=== PATIENT | female | born 1965 | race Caucasian/White ===

== ENCOUNTER 2020-03-16 07:26 | Outpatient (REF) | payer OTHER, SELFPAY ==
[2020-03-16 08:44] LABS: Cholesterol 277 mg/dL; HDL Cholesterol 77 mg/dL; LDL Cholesterol Calculated 188 mg/dl; Triglycerides 60 mg/dL
[2020-03-16 09:06] LABS: Vitamin D 25-OH Total 65.5 ng/mL (>30)
== END 2020-03-16 07:27 | disposition home or self-care (01) ==
LOC: HO.LAB 07:26
PROVIDERS: PCP Internal Medicine; Visit Provider Internal Medicine
DX: E55.9 Vitamin D deficiency, unspecified (principal); E78.5 Hyperlipidemia, unspecified; Z78.0 Asymptomatic menopausal state
CPT/HCPCS: 80061; 82306

== ENCOUNTER 2020-07-22 07:40 | Outpatient (REF) | payer OTHER, SELFPAY ==
[2020-07-22 09:01] LABS: Alanine Aminotransferase 13 U/L (0-31); Aspartate Amino Transferase 13 U/L (5-31); Cholesterol 195 mg/dL; HDL Cholesterol 69 mg/dL; LDL Cholesterol Calculated 119 mg/dl; Triglycerides 39 mg/dL
[2020-07-22 09:22] LABS: Vitamin D 25-OH Total 40.5 ng/mL (>30)
== END 2020-07-22 07:41 | disposition home or self-care (01) ==
LOC: HO.LAB 07:40
PROVIDERS: PCP Internal Medicine; Visit Provider Internal Medicine
DX: E66.9 Obesity, unspecified (principal); E78.5 Hyperlipidemia, unspecified; Z78.0 Asymptomatic menopausal state
CPT/HCPCS: 36415; 80061; 82306; 84450; 84460

== ENCOUNTER 2021-01-04 07:21 | Outpatient (REF) | payer OTHER, SELFPAY ==
[2021-01-04 08:54] LABS: Alanine Aminotransferase 16 U/L (0-31); Anion Gap 10 (12-20); Aspartate Amino Transferase 14 U/L (5-31); Blood Urea Nitrogen 17 mg/dL (9-16); Calcium 9.2 mg/dL (8.4-10.2); Carbon Dioxide 28 mmol/L (22-29); Chloride 107 mmol/L (96-108); Cholesterol 210 mg/dL; Estimated Glomerular Filt Rate > 60; Glucose Fasting 96 mg/dL (60-99); HDL Cholesterol 63 mg/dL; LDL Cholesterol Calculated 135 mg/dl; Potassium 4.1 mmol/L (3.3-5.1); Sodium 141 mmol/L (135-145); Triglycerides 64 mg/dL
[2021-01-04 09:16] LABS: Vitamin D 25-OH Total 34.7 ng/mL (>30)
== END 2021-01-04 07:22 | disposition home or self-care (01) ==
LOC: HO.LAB 07:21
PROVIDERS: PCP Internal Medicine; Visit Provider Internal Medicine
DX: E78.5 Hyperlipidemia, unspecified (principal); I10 Essential (primary) hypertension; Z78.0 Asymptomatic menopausal state
CPT/HCPCS: 36415; 80048; 80061; 82306; 84450; 84460

== ENCOUNTER 2022-02-25 08:42 | Outpatient (REF) | payer OTHER, SELFPAY ==
[2022-02-25 09:55] LABS: Alanine Aminotransferase 16 U/L (0-31); Anion Gap 16 (12-20); Aspartate Amino Transferase 16 U/L (5-31); Blood Urea Nitrogen 17 mg/dL (9-16); Calcium 9.4 mg/dL (8.4-10.2); Carbon Dioxide 25 mmol/L (22-29); Chloride 107 mmol/L (96-108); Cholesterol 279 mg/dL; Estimated Glomerular Filt Rate > 60; Glucose Fasting 104 mg/dL (60-99); HDL Cholesterol 71 mg/dL; LDL Cholesterol Calculated 192 mg/dl; Potassium 4.6 mmol/L (3.3-5.1); Sodium 143 mmol/L (135-145); Triglycerides 81 mg/dL
[2022-02-25 10:18] LABS: Vitamin D 25-OH Total 29.2 ng/mL (>30)
== END 2022-02-25 08:43 | disposition home or self-care (01) ==
LOC: HO.LAB 08:42
PROVIDERS: PCP Internal Medicine; Visit Provider Internal Medicine
DX: E66.9 Obesity, unspecified (principal); E78.5 Hyperlipidemia, unspecified; Z78.0 Asymptomatic menopausal state
CPT/HCPCS: 36415; 80048; 80061; 82306; 84450; 84460

== ENCOUNTER 2022-05-28 08:49 | Outpatient (REF) | payer OTHER, SELFPAY ==
[2022-05-28 09:34] LABS: Estimated Average Glucose 105 mg/dL; Hemoglobin A1c % 5.3 %
[2022-05-28 10:03] LABS: Anion Gap 12 (12-20); Aspartate Amino Transferase 16 U/L (5-31); Blood Urea Nitrogen 21 mg/dL (9-16); Calcium 9.6 mg/dL (8.4-10.2); Carbon Dioxide 26 mmol/L (22-29); Chloride 107 mmol/L (96-108); Cholesterol 199 mg/dL; Estimated Glomerular Filt Rate > 60; Glucose Fasting 96 mg/dL (60-99); HDL Cholesterol 77 mg/dL; LDL Cholesterol Calculated 110 mg/dl; Potassium 4.4 mmol/L (3.3-5.1); Sodium 141 mmol/L (135-145); Triglycerides 61 mg/dL
[2022-05-28 10:26] LABS: Vitamin D 25-OH Total 50.9 ng/mL (>30)
== END 2022-05-28 08:50 | disposition home or self-care (01) ==
LOC: HO.LAB 08:49
PROVIDERS: PCP Internal Medicine; Visit Provider Internal Medicine
DX: E55.9 Vitamin D deficiency, unspecified (principal); E78.5 Hyperlipidemia, unspecified; R73.01 Impaired fasting glucose; Z78.0 Asymptomatic menopausal state
CPT/HCPCS: 36415; 80048; 80061; 82306; 82550; 83036; 84450

== ENCOUNTER 2023-01-29 08:32 | Outpatient (REF) | payer OTHER, SELFPAY ==
[2023-01-29 09:59] LABS: Glucose Fasting 94 mg/dL (60-99)
== END 2023-01-29 08:33 | disposition home or self-care (01) ==
LOC: HO.LAB 08:32
PROVIDERS: PCP Internal Medicine; Visit Provider Internal Medicine
DX: E55.9 Vitamin D deficiency, unspecified (principal); R73.01 Impaired fasting glucose; E78.5 Hyperlipidemia, unspecified; Z78.0 Asymptomatic menopausal state
CPT/HCPCS: 36415; 82947

== ENCOUNTER 2023-02-10 07:20 | Outpatient (REF) | payer OTHER, SELFPAY ==
[2023-02-10 08:33] LABS: Alanine Aminotransferase 15 U/L (0-31); Aspartate Amino Transferase 16 U/L (5-31); Cholesterol 200 mg/dL (<200); HDL Cholesterol 69 mg/dL (>40); LDL Cholesterol Calculated 116 mg/dL (<100); Triglycerides 78 mg/dL (<150)
[2023-02-10 08:49] LABS: Vitamin D 25-OH Total 38.3 ng/mL (>30)
== END 2023-02-10 07:21 | disposition home or self-care (01) ==
LOC: HO.LAB 07:20
PROVIDERS: PCP Internal Medicine; Visit Provider Internal Medicine
DX: E78.5 Hyperlipidemia, unspecified (principal); E55.9 Vitamin D deficiency, unspecified; Z78.0 Asymptomatic menopausal state; E66.9 Obesity, unspecified
CPT/HCPCS: 36415; 80061; 82306; 84450; 84460

== ENCOUNTER 2023-02-13 13:40 | Outpatient (AMB) | payer OTHER, SELFPAY ==
--- NOTE | 2023-02-13 13:41 | A.OFFPC_ITS ---
Vital Signs 02/13/23 13:44 Height 5 ft 2 in Weight 227 lb BMI 41.5 BP 130/76 Blood Pressure Location Rt brachial Position Sitting Pulse 69 Pulse Source Pulse Oximeter Pulse Oximetry (%) 97 Oxygen Delivery Method Room Air Intake Visit Reasons: 6M. F/U-ffup lipids after labs done Intake Note: patient is here today for her 6 moth f/u Allergies latex [LATEX] Allergy (Intermediate, Verified 02/13/23 14:13) RASH Medication List - Last Reconciled 02/13/23 by Gracie Bruce MD cholecalciferol (vitamin D3) 1,250 mcg PO QWEEK 90 days rosuvastatin 5 mg PO DAILY Tobacco use date assessed: 02/13/23 Dental Screening Dental Screen Date: 02/13/23 Did you have a dental visit in the last 12 months?: Yes Did you have a dental problem in the last 6 months where you did not have access to dental care?: No Was dental information given to patient?: Patient has dentist HPI 6M. F/U-ffup lipids after labs done HPI Details 57-year-old lady with hyperlipidemia, mo rbid obesity, history of impaired fasting glucose and vitamin-D deficiency, here today for follow-up. She has been taking rosuvastatin 5 mg once a day, tolerating medication well with no complaints of any muscle pain or weakness. Has been trying to follow a low-cholesterol diet but admits to not getting much exercise. She also has been having intermittent episodes of chest tightness, not accompanied by any shortness of breath or lightheadedness. Her blood pressure has been within normal limits. Patient attributes it to a stressful work environment, as she has these symptoms when she is at work. An EKG was done today which showed normal sinus rhythm with no acute ST-T changes. [facility] Medical History Hammertoe of second toe of right foot Impaired fasting glucose Vitamin D deficiency Family history of breast cancer in sister Menopause Influenza vaccination declined Dermatitis Dysfunctional uterine bleeding Obesity Dyslipidemia Surgical History History of hammertoe correction History of colonoscopy History of bunionectomy Family History Father Myocardial infarction HTN (hypertension) CVD (cardiovascular disease) Mother CKD (chronic kidney disease) CVD (cardiovascular disease) Diabetes mellitus Maternal Grandfather Diabetes mellitus Sister Mental health disorder Sister Mental health disorder Social History Housing: House Alcohol intake: never Patient Tobacco Use Status: Never used Tobacco e-Cigarette/Vaping Use: Never Used Current occupational status: employed Cognitive needs: No Hearing needs: No Vision needs: Yes Questionnaire PHQ-9 Over the last 2 weeks, how often have you been bothered by any of the following problems? Depression Screening Interpretation: Negative Source: Developed by Drs. Esau Gonzalez, Matilde Mulligan, Adarsh Felix and colleagues, with an educational ciro from [employer]. Thrive Questionnaire Date Thrive assessed: 06/03/22 AUDIT C Alcohol Use Questionnaire (AUDIT-C) 1. How often do you have a drink containing alcohol?: Monthly or less 2. How many drinks containing alcohol do you have on a typical day when you are drinking?: 1 or 2 Total Score: 1 CHARLES-7 AMB Questionnaire CHARLES-7 Date CHARLES - 7 assessed: 06/03/22 Source: Developed by Drs. Esau Gonzalez, Matilde Mulligan, Adarsh Felix and colleagues, with an educational ciro from [employer]. Review of Systems Const Denies headache(s) and Denies weakness Eyes Reports no additional complaints ENT Denies dizziness, Denies headache(s), Denies nasal congestion, Denies nasal discharge and Denies sore throat Card Denies chest pain, Denies lightheadedness, Denies palpitations and Denies dyspnea Resp Denies chest congestion, Denies cough, Denies dyspnea and Denies wheezing GI Denies abdominal pain, Denies change in bowel habits and Denies heartburn Reports no additional complaints Musc Reports no additional complaints Skin/Breast Denies lesions and Denies rash Neuro Denies dizziness, Denies headache(s) and Denies weakness Psych Reports no additional complaints Endo Denies polydipsia, Denies polyuria and Denies palpitations Aller/Immun Denies seasonal rhinorrhea and Denies wheezing Physical exam (Primary Care) Vital Signs: Last Vital Signs Pulse 69 02/13/23 13:44 BP 130/76 02/13/23 13:44 Pulse Ox 97 09/28/23 13:44 Oxygen Delivery Method Room Air 02/13/23 13:44 BMI result Body Mass Index 41.5 BMI Assessment/Plan discussion: High BMI High, discussed plan: lifestyle, weight reduction, dietary and physical activity Tobacco/Smoking Status: Tobacco use Status Tobacco use date assessed 02/13/23 02/13/23 13:50 Patient Tobacco Use Status Never used Tobacco 02/13/23 13:41 e-Cigarette/Vaping Use Never Used 02/13/23 13:41 Depression Screening Interpretation: Negative Thrive Assessment: Date of Thrive Assessment Date Thrive assessed 06/03/22 02/13/23 13:41 Const General: comfortable, no acute distress, alert and Physically active Nutritional Appearance: obese Orientation/consciousness: patient oriented x3 HENMT Head: Yes normocephalic Ears: TM's normal bilaterally and EAC's normal General nose exam: Normal external nose present and No nasal discharge present Face and sinus: Yes face symmetric Mouth: oropharynx normal and moist mucous membranes Eyes General: appearance normal, both eyes and all related structures Neck Neck: Yes full ROM, Yes no lymphadenopathy and Yes supple Chest Other: No reproducible tenderness over anterior chest wall Chest palpation & inspection: normal inspection of the chest and normal palpation of entire chest wall Breast/axilla inspection: normal inspection of the breasts Breast/axilla palpation: normal palpation of the breasts Resp Auscultation: clear to auscultation bilaterally Cardio Rate: regular rate Rhythm: regular rhythm Heart sounds: S1 normal heart sound present and S2 normal heart sound present GI Palpation (GI): Soft to palpation, nontender, no guarding and no masses Auscultation: normal bowel sounds Back/Spine/Pelvis Back: No back tenderness Skin General skin exam: no rashes or lesions noted Neuro General: patient oriented x3, gait normal, tone normal, moves all extremities, no focal motor deficits and CN's II-XI intact bilaterally Extrem Other: Positive hammertoes present on right 2nd toe General: Yes full ROM, Yes no clubbing, cyanosis or edema, Yes no calf tenderness and Yes normal gait Psych Appearance: grossly normal and well kempt Mental Status: mental status grossly normal Speech and movement: Normal speech and movement present Affect: normal affect Attitude: cooperative Thought process: Normal thought process present Results Reviewed Results Reviewed: ENTERED: 02/10/23 [facility] : ORDERED: AST, ALT, Lipid Panel, Vitamin D 25-OH Test Result Flag Reference Site AST (GOT) 16 5-31 U/L ALT (GPT) 15 0-31 U/L Triglyceride 78 <150 mg/dL Desirable Triglyceride: less than 150 mg/dL Borderline High Triglyceride 150-199 mg/dL High Triglyceride: 200-499 mg/dL Very High Triglyceride: greater than or equal to 5OO mg/dL Cholesterol 200 H <200 mg/dL Desirable Cholesterol: less than 200 mg/dL Borderline High Cholesterol: 200-239 mg/dL High Cholesterol: greater than 239 mg/dL LDL Calculated 116 H <100 mg/dL Desirable LDL: less than 100 mg/dL Near Optimal/Above Optimal LDL: 110-129 mg/dL Borderline High LDL: 130-159 mg/dL High LDL: 160-189 mg/dL Very High LDL: greater than or equal to 190 mg/dL HDL 69 >40 mg/dL Desirable HDL: greater than 40 mg/dL Note: This HDL assay may give artificially low results in patients with liver disease. Vit D 25-OH Tot 38.3 >30 ng/mL Health Based Reference Values* < 20 ng/mL Deficient 20-30 ng/mL Insufficient > 30 ng/mL Sufficient Assessment and Plan Assessment & Plan (1) Tightness in chest: Code(s): R07.89 - Other chest pain Plan: EKG done today showed normal sinus rhythm with no acute ST-T changes, blood pressure is within normal limits, fasting lipids and fasting glucose are also within normal limits, is most likely attributed to possible acute anxiety attacks..Discussed symptoms of anxiety. Discussed ways to relieve stress including : exercise or a massage, Get enough rest, Avoid alcohol, caffeine, nicotine, and illegal drugs which can increase your anxiety level and cause sleep problems. (2) Impaired fasting glucose: Code(s): R73.01 - Impaired fasting glucose Plan: Your fasting blood sugars in the past were elevated above 100 mg/dL. Latest labs however showed normal fasting glucose levels. Impaired glucose metabolism O2 at risk for developing diabetes mellitus type 2, as well as heart attack and stroke later on. Lifestyle changes at just weight loss, healthy eating habits, and regular exercise are important, and can prevent the progression to diabetes (3) Dyslipidemia: Code(s): E78.5 - Hyperlipidemia, unspecified Plan: Reviewed recent fasting lipid profile with patient with levels within normal limits except for low good cholesterol . Continue with rosuvastatin , in addition to adherence to low-cholesterol diet and regular exercise, at least 30 minutes 3 to 4 times a week. Advised patient to make healthy food choices, eat more fruits, vegetables, whole grains, wild caught fish and low-fat dairy. Limit amount of meat and fried or fatty food products, as well as processed foods and fast foods. Follow-up scheduled with repeat fasting lipid panel in 6 months. Orders: Orders AMB EKG-In Office Today R07.89 - Other chest pain Alanine Aminotransferase 6 Months E55.9 - Vitamin D deficiency, unspecified, E78.5 - Hyperlipidemia, unspecified, R73.01 - Impaired fasting glucose, Z78.0 - Asymptomatic menopausal state Aspartate Amino Transferase 6 Months E55.9 - Vitamin D deficiency, unspecified, E78.5 - Hyperlipidemia, unspecified, R73.01 - Impaired fasting glucose, Z78.0 - Asymptomatic menopausal state Vitamin D 25-OH Total 6 Months E55.9 - Vitamin D deficiency, unspecified, E78.5 - Hyperlipidemia, unspecified, R73.01 - Impaired fasting glucose, Z78.0 - Asymptomatic menopausal state Glucose Fasting 6 Months E55.9 - Vitamin D deficiency, unspecified, E78.5 - Hyperlipidemia, unspecified, R73.01 - Impaired fasting glucose, Z78.0 - Asymptomatic menopausal state Lipid Panel 6 Months E55.9 - Vitamin D deficiency, unspecified, E78.5 - Hyperlipidemia, unspecified, R73.01 - Impaired fasting glucose, Z78.0 - Asymptomatic menopausal state Medications: Refilled rosuvastatin 5 mg PO DAILY 90 tabs 4RF E78.5 - Hyperlipidemia, unspecified Coding Level of Care Code Est Pt Level 4 (02272) Diagnoses Tightness in chest R07.89 Impaired fasting glucose R73.01 Dyslipidemia E78.5
[2023-02-13 13:44] VITALS: BP 130/76; PULSE 69; O2SAT 97; BMI 41.5
== END 2023-02-13 14:44 | disposition home or self-care (01) ==
PROVIDERS: PCP Internal Medicine; Visit Provider Internal Medicine
DX: R07.89 Other chest pain (principal); R73.01 Impaired fasting glucose; E78.5 Hyperlipidemia, unspecified
CPT/HCPCS: 99214

== ENCOUNTER 2023-10-21 08:13 | Outpatient (REF) | payer OTHER, SELFPAY ==
[2023-10-21 09:40] LABS: Alanine Aminotransferase 15 U/L (0-31); Aspartate Amino Transferase 16 U/L (5-31); Cholesterol 242 mg/dL (<200); Glucose Fasting 106 mg/dL (60-99); HDL Cholesterol 66 mg/dL (>40); LDL Cholesterol Calculated 163 mg/dL (<100); Triglycerides 68 mg/dL (<150)
[2023-10-21 09:57] LABS: Vitamin D 25-OH Total 29.1 ng/mL (>30)
== END 2023-10-21 08:14 | disposition home or self-care (01) ==
LOC: HO.LAB 08:13
PROVIDERS: PCP Internal Medicine; Visit Provider Internal Medicine
DX: E55.9 Vitamin D deficiency, unspecified (principal); R73.01 Impaired fasting glucose; Z78.0 Asymptomatic menopausal state; E78.5 Hyperlipidemia, unspecified
CPT/HCPCS: 36415; 80061; 82306; 82947; 84450; 84460

== ENCOUNTER 2023-10-28 09:08 | Outpatient (AMB) | payer OTHER, SELFPAY ==
--- NOTE | 2023-10-28 09:27 | A.OFFPC_ITS ---
Vital Signs 10/28/23 09:30 Height 5 ft 2 in Weight 234 lb BMI 42.8 BP 120/66 Blood Pressure Location Rt brachial Position Sitting Pulse 65 Pulse Source Pulse Oximeter Pulse Oximetry (%) 97 Oxygen Delivery Method Room Air Intake Visit Reasons: Annual PE Intake Note: Pt is here today for PE. Pt had mammogram done 09/29/23, colonoscopy done in 04/17/2017 repeat in 7 years. Pt last pap was done at [facility] in 06/2023. Allergies latex [LATEX] Allergy (Intermediate, Verified 02/17/24 22:48) RASH Medication List - Last Reconciled 10/28/23 by Gracie Bruce MD No Known Home Meds Tobacco use date assessed: 10/28/23 Dental Screening Dental Screen Date: 10/28/23 Did you have a dental visit in the last 12 months?: Yes Did you have a dental problem in the last 6 months where you did not have access to dental care?: No Was dental information given to patient?: Patient has dentist HPI Annual PE HPI Details 58-year-old lady here today for physical exam. She sees her OBGYN at [facility], up-to-date with her cervical cancer screening, she is also up-to-date with her screening mammogram . She had a screening colonoscopy done by Dr. Phillips 04/17/2017 which showed negative findings, but due to her of positive family history for ovarian cancer and breast cancer, recommendations to get it repeated in 7 years. [facility] Medical History CHEK2 gene mutation positive Hammertoe of second toe of right foot Impaired fasting glucose Vitamin D deficiency Family history of breast cancer in sister Menopause Influenza vaccination declined Dermatitis Dysfunctional uterine bleeding Obesity Dyslipidemia Surgical History History of hammertoe correction History of colonoscopy History of bunionectomy Family History Father Myocardial infarction HTN (hypertension) CVD (cardiovascular disease) Mother CKD (chronic kidney disease) CVD (cardiovascular disease) Diabetes mellitus Maternal Grandfather Diabetes mellitus Sister Mental health disorder Sister Mental health disorder Social History Housing: House Alcohol intake: never Patient Tobacco Use Status: Never used Tobacco e-Cigarette/Vaping Use: Never Used service: No Current occupational status: employed Cognitive needs: No Hearing needs: No Vision needs: Yes Questionnaire PHQ-9 Over the last 2 weeks, how often have you been bothered by any of the following problems? 1. Little interest or pleasure in doing things: not at all 2. Feeling down, depressed, or hopeless: not at all 3. Trouble falling or staying asleep, or sleeping too much: not at all 4. Feeling tired or having little energy: more than half the days 5. Poor appetite or overeating: more than half the days 6. Feeling bad about yourself - or that you are a failure or have let yourself or your family down: several days 7. Trouble concentrating on things, such as reading the newspaper or watching television: not at all 8. Moving or speaking so slowly that other people could have noticed. Or the opposite - being so fidgety or restless that you have been moving around a lot more than usual: more than half the days 9. Thoughts that you would be better off or of hurting yourself in some way: not at all Total score: 7 Depression Screening Interpretation: Negative Depression Screening Done: Yes 01174 - PHQ-9 Billing: Yes Source: Developed by Drs. Esau Gonzalez, Matilde Mulligan, Adarsh Felix and colleagues, with an educational ciro from [employer]. Thrive Questionnaire Date Thrive assessed: 10/28/23 I am a: Patient What is your living situation today?: I have a steady place to live Within the past 12 months, did the food you bought not last and you didn't have the money to get more?: Never true Within the past 12 months, did you worry whether your food would run out before you got money to buy more?: Never true Do you have trouble paying for medicines?: No Do you have trouble getting transportation to medical appointments?: No Do you have trouble paying your heating and electricity bill?: No Do you have trouble taking care of your child, family member or friend?: No Do you have trouble with day-to-day activities such as bathing, preparing meals, shopping, managing finances, etc.?: No Are you currently unemployed and looking for a job?: No Are you interested in more education?: No Please select the resources that you would like help with: None THRIVE Score: 0 AUDIT C Alcohol Use Questionnaire (AUDIT-C) 1. How often do you have a drink containing alcohol?: Monthly or less 2. How many drinks containing alcohol do you have on a typical day when you are drinking?: 1 or 2 3. How often do you have six or more drinks on one occasion?: Never Total Score: 1 CHARLES-7 AMB Questionnaire CHARLES-7 Date CHARLES - 7 assessed: 10/28/23 Feeling nervous, anxious, or on edge: 1 = Several days Not being able to stop or control worryin = Not at all Worrying too much about different things: 1 = Several days Trouble relaxin = Several days Being so restless that it is hard to sit still: 0 = Not at all Becoming easily annoyed or irritable: 1 = Several days Feeling afraid as if something awful might happen: 0 = Not at all Total CHARLES-7 score (0-4 normal; 5-9 mild; 10-14 moderate; 15-21 severe): 4 Source: Developed by Drs. Esau Gonzalez, Matilde Mulligan, Adarsh Felix and colleagues, with an educational ciro from [employer]. CHARLES-7 Assessment Billing CHARLES-7 Assessment Tool: CHARLES-7 Assessment 22530 Review of Systems Const Denies headache(s) and Denies weakness Eyes Details: Goes to [facility] for her eye exam Reports no additional complaints ENT Details: Gets regular dental prophylaxis every 6 months Denies dizziness, Denies headache(s), Denies nasal congestion, Denies nasal discharge and Denies sore throat Card Denies chest pain, Denies lightheadedness, Denies palpitations and Denies dyspnea Resp Denies chest congestion, Denies cough, Denies dyspnea and Denies wheezing GI Denies abdominal pain, Denies change in bowel habits and Denies heartburn Details: Goes to [facility] . For her routine Pap and pelvic, copy of last results requested Reports no additional complaints Musc Reports no additional complaints Skin/Breast Denies lesions and Denies rash Neuro Denies dizziness, Denies headache(s) and Denies weakness Psych Reports no additional complaints Endo Denies polydipsia, Denies polyuria and Denies palpitations Tommy/Lymph Reports no additional complaints Aller/Immun Denies seasonal rhinorrhea and Denies wheezing Physical exam (Primary Care) Vital Signs: Last Vital Signs Pulse 65 10/28/23 09:30 BP 120/66 10/28/23 09:30 Pulse Ox 97 10/28/23 09:30 Oxygen Delivery Method Room Air 10/28/23 09:30 BMI result Body Mass Index 42.8 BMI Assessment/Plan discussion: High BMI High, discussed plan: lifestyle, weight reduction, dietary and physical activity Tobacco/Smoking Status: Tobacco use Status Tobacco use date assessed 10/28/23 10/28/23 09:52 Patient Tobacco Use Status Never used Tobacco 10/28/23 09:27 e-Cigarette/Vaping Use Never Used 10/28/23 09:27 PHQ-9: PHQ-9 Score PHQ-9: Total score 9 10/28/23 10:48 Depression Screening Interpretation: Negative Thrive Assessment: Date of Thrive Assessment Date Thrive assessed 10/28/23 10/28/23 09:52 Const General: comfortable, no acute distress and alert Nutritional Appearance: obese Orientation/consciousness: patient oriented x3 HENMT Head: Yes normocephalic Ears: TM's normal bilaterally and EAC's normal General nose exam: Normal external nose present and No nasal discharge present Face and sinus: Yes face symmetric Mouth: oropharynx normal and moist mucous membranes Eyes General: appearance normal, both eyes and all related structures Neck Neck: Yes full ROM, Yes no lymphadenopathy and Yes supple Chest Other: No reproducible tenderness over anterior chest wall Chest palpation & inspection: normal inspection of the chest and normal palpation of entire chest wall Breast/axilla inspection: normal inspection of the breasts Breast/axilla palpation: normal palpation of the breasts Resp Auscultation: clear to auscultation bilaterally Cardio Rate: regular rate Rhythm: regular rhythm Heart sounds: S1 normal heart sound present and S2 normal heart sound present GI Palpation (GI): Soft to palpation, nontender, no guarding and no masses Auscultation: normal bowel sounds Other: Goes to her own OBGYN at [facility] for her routine Pap and pelvic exam Back/Spine/Pelvis Back: No back tenderness Skin General skin exam: no rashes or lesions noted Neuro General: patient oriented x3, gait normal, tone normal, moves all extremities, no focal motor deficits and CN's II-XI intact bilaterally Extrem Other: Positive hammertoes present on right 2nd toe General: Yes full ROM, Yes no clubbing, cyanosis or edema, Yes no calf tenderness and Yes normal gait Psych Appearance: grossly normal and well kempt Mental Status: mental status grossly normal Speech and movement: Normal speech and movement present Affect: normal affect Attitude: cooperative Thought process: Normal thought process present Results Reviewed Results Reviewed: ivan: Zeina Villegas Age/Sex: 58/F : 1965 Unit#: [id number] Attend Dr: Gracie Bruce MD Re10/21/23 Status: DEP [facility] Disch: SPEC : [id number] TRAE: 10/21/23 STATUS: COMP REQ : [id number] RECD: 10/21/[address]: Gracie Bruce MD COMP: 10/21/23 ENTERED: 10/21/[address]: ORDERED: Glu Fasting, AST, ALT, Lipid Panel, Vitamin D 25-OH Test Result Flag Reference FBS 106 H 60-99 mg/dL A fasting glucose from 100-125 mg/dl is considered impaired (pre-diabetes). AST (GOT) 16 5-31 U/L ALT (GPT) 15 0-31 U/L Triglyceride 68 <150 mg/dL Desirable Triglyceride: less than 150 mg/dL Borderline High Triglyceride 150-199 mg/dL High Triglyceride: 200-499 mg/dL Very High Triglyceride: greater than or equal to 5OO mg/dL Cholesterol 242 H <200 mg/dL Desirable Cholesterol: less than 200 mg/dL Borderline High Cholesterol: 200-239 mg/dL High Cholesterol: greater than 239 mg/dL LDL Calculated 163 H <100 mg/dL Desirable LDL: less than 100 mg/dL Near Optimal/Above Optimal LDL: 110-129 mg/dL Borderline High LDL: 130-159 mg/dL High LDL: 160-189 mg/dL Very High LDL: greater than or equal to 190 mg/dL HDL 66 >40 mg/dL Desirable HDL: greater than 40 mg/dL Note: This HDL assay may give artificially low results in patients with liver disease. Vit D 25-OH Tot 29.1 L >30 ng/mL Health Based Reference Values* < 20 ng/mL Deficient 20-30 ng/mL Insufficient > 30 ng/mL Sufficient Coding Level of Care Code Est Pt Prev Care 40-64y(07178) Diagnoses Vitamin D deficiency E55.9 Dyslipidemia E78.5 Impaired fasting glucose R73.01 Annual visit for general adult medical examination with abnormal findings Z00.01 CHEK2 gene mutation positive Z15.89 Encounter for screening for malignant neoplasm of colon Z12.11 Additional Codes CHARLES-7 Assessment Billing - CHARLES-7 Assessment Tool: CHARLES-7 Assessment 64689 ([id number])
[2023-10-28 09:30] VITALS: BP 120/66; PULSE 65; O2SAT 97; BMI 42.8
== END 2023-10-28 11:26 | disposition home or self-care (01) ==
PROVIDERS: PCP Internal Medicine; Visit Provider Internal Medicine
DX: E55.9 Vitamin D deficiency, unspecified (principal); E78.5 Hyperlipidemia, unspecified; R73.01 Impaired fasting glucose; Z00.01 Encounter for general adult medical examination with abnormal findings; Z15.89 Genetic susceptibility to other disease; Z12.11 Encounter for screening for malignant neoplasm of colon
CPT/HCPCS: 99499

== ENCOUNTER 2024-01-07 07:50 | Outpatient (AMB) | payer OTHER, SELFPAY ==
--- NOTE | 2024-01-07 08:02 | MHC.OFFVIS ---
Vital Signs 01/07/24 08:03 Height 5 ft 2 in Weight 234 lb 2.095 oz BMI 42.8 BP 146/88 H Blood Pressure Location Rt brachial Position Sitting Pulse 66 Pulse Source Pulse Oximeter Pulse Oximetry (%) 97 Oxygen Delivery Method Room Air Intake Visit Reasons: Colonoscopy Screening Intake Note: Zeina presents in office today for a scheduled colo consult. CC; Pt reports that they are due for recall colo (approximately 10 years ago). Pt reports that they recently had genetic testing which showed signs of increased risk of colo cancer. Pt denies any new symptoms at this time. Equipment Service Technician Required: No Allergies latex [LATEX] Allergy (Intermediate, Verified 01/07/24 08:03) RASH HPI HPI Colonoscopy Screening: Details: 58 year old? female here today for pre colonoscopy screening.? Patient was sent to us by her PCP.? Family history of CRC, patient's maternal grandfather was diagnosed with colorectal cancer. Last colonoscopy in March of 2017. Patient just had a genetic testing and was found to have CHEK2 mutation. Patient denies any gastrointestinal symptoms in the past or at present.? ? Denies history of difficulty with sedation or anesthesia in the past.? Negative for history of sleep apnea.? Denies any history of cardiac, renal, pulmonary, or hepatic disease.?? No history of infectious? diseases like hepatitis A, B, C, HIV or tuberculosis.? Patient is not on any anticoagulation [facility] Medical History CHEK2 gene mutation positive Hammertoe of second toe of right foot Impaired fasting glucose Vitamin D deficiency Family history of breast cancer in sister Menopause Influenza vaccination declined Dermatitis Dysfunctional uterine bleeding Obesity Dyslipidemia Surgical History History of hammertoe correction History of colonoscopy History of bunionectomy Family History Father Myocardial infarction HTN (hypertension) CVD (cardiovascular disease) Mother CKD (chronic kidney disease) CVD (cardiovascular disease) Diabetes mellitus Maternal Grandfather Diabetes mellitus Sister Mental health disorder Sister Mental health disorder Social History Housing: House Alcohol intake: never Patient Tobacco Use Status: Never used Tobacco e-Cigarette/Vaping Use: Never Used service: No Current occupational status: employed Cognitive needs: No Hearing needs: No Vision needs: Yes Review of Systems Const Denies weight gain and Denies weight loss ENT Reports no additional complaints, Denies dysphagia and Denies odynophagia Card Reports no additional complaints Resp Reports no additional complaints GI Denies abdominal pain, Denies belching, Denies melena, Denies bloating, Denies change in bowel habits, Denies dysphagia, Denies excessive flatus, Denies dyspepsia, Denies heartburn, Denies diarrhea, Denies loose stools, Denies nausea, Denies odynophagia and Denies vomiting Musc Reports no additional complaints Neuro Reports no additional complaints Psych Reports no additional complaints Endo Reports no additional complaints Physical Exam Vital Signs: Last Vital Signs Pulse 66 01/07/24 08:03 BP 146/88 H 01/07/24 08:03 Pulse Ox 97 01/07/24 08:03 Oxygen Delivery Method Room Air 01/07/24 08:03 BMI result Body Mass Index 42.8 Const General: healthy appearing and no acute distress Nutritional Appearance: obese Orientation/consciousness: patient oriented x3 Resp Effort & Inspection: normal respiratory effort, able to speak in complete sentences, no tracheal deviation and symmetric chest movement Auscultation: clear to auscultation bilaterally Cardio Rate: regular rate GI Inspection: Yes normal to inspection, No distended and Yes obesity Palpation (GI): Soft to palpation, not firm, nontender and No hepatosplenomegaly present Auscultation: normal bowel sounds General: Yes no CVA tenderness Back/Spine/Pelvis Back: no CVA tenderness Skin General skin exam: elasticity normal, turgor normal and dry skin Neuro General: patient oriented x3 Psych Appearance: grossly normal Mental Status: mental status grossly normal Assessment & Plan Assessment & Plan (1) CHEK2 gene mutation positive: Code(s): Z15.89 - Genetic susceptibility to other disease Category: Medical (2) Encounter for screening for malignant neoplasm of colon: Code(s): Z12.11 - Encounter for screening for malignant neoplasm of colon Plan Patient denies any GI, cardiac or respiratory symptoms.? Denies any issues with anesthesia in the past.? Denies any history of sleep apnea.? No history infectious diseases in the past or present.? Not on any anticoagulation therapy.?.? Patient denies melena, hematochezia, unintentional weight loss or ribbon like stools.? Discussed at length the pre-procedure,? prep, diet & medications as well as what to expect prior, during and after the procedure.?? Stressed the importance of good bowel prep.? Recommended the use of Vaseline or Calmoseptine OTC & baby wipes with bowel movements to promote comfort.? ?Patient verbalizes understanding and agrees to plan of care.? She was given the opportunity to ask questions and all questions answered.? We will see her after the procedure.? Medications: New bisacodyl (Dulcolax (bisacodyl)) take 4 tabs at noon the day before your colonoscopy 20 mg (4 x 5 mg) PO ONCE 4 tabs 0RF 1 day Z12.11 - Encounter for screening for malignant neoplasm of colon polyethylene glycol 3350 (Miralax) As directed by gastroenterology department at [facility] 238 grams PO ONCE 238 grams 0RF Z12.11 - Encounter for screening for malignant neoplasm of colon Coding Level of Care Code New Pt Level 3 (17636) Diagnoses CHEK2 gene mutation positive Z15.89 Encounter for screening for malignant neoplasm of colon Z12.11 Time Spent (min) 40 Comment 30 minutes spent with patient and additional 10 minutes spent reviewing her records
[2024-01-07 08:03] VITALS: BP 146/88; PULSE 66; O2SAT 97; BMI 42.8
== END 2024-01-07 08:46 | disposition home or self-care (01) ==
PROVIDERS: PCP Internal Medicine; Visit Provider Nurse Practitioner Family
DX: Z15.89 Genetic susceptibility to other disease (principal); Z12.11 Encounter for screening for malignant neoplasm of colon
CPT/HCPCS: 99203

== ENCOUNTER → 2024-01-07 07:50 | Outpatient (BNVA) | payer OTHER, SELFPAY | PROVIDERS: PCP Internal Medicine; Visit Provider Nurse Practitioner Family ==

== ENCOUNTER 2024-03-29 07:24 | Outpatient (REF) | payer OTHER, SELFPAY ==
[2024-03-29 07:57] LABS: Estimated Average Glucose 105 mg/dL; Hemoglobin A1C 124.2814 umol/L; Hemoglobin A1c % 5.3 % (<6.0); Total Hemoglobin (HGBA1C) 3621.9444 umol/L
[2024-03-29 08:05] LABS: Alanine Aminotransferase 19 U/L (0-31); Aspartate Amino Transferase 23 U/L (5-31); Cholesterol 270 mg/dL (<200); HDL Cholesterol 62 mg/dL (>40); LDL Cholesterol Calculated 186 mg/dL (<100); Triglycerides 112 mg/dL (<150)
[2024-03-29 08:26] LABS: Vitamin D 25-OH Total 30.2 ng/mL (>30)
== END 2024-03-29 07:25 | disposition home or self-care (01) ==
LOC: HO.LAB 07:24
PROVIDERS: PCP Internal Medicine; Visit Provider Internal Medicine
DX: R73.01 Impaired fasting glucose (principal); E55.9 Vitamin D deficiency, unspecified; E78.5 Hyperlipidemia, unspecified
CPT/HCPCS: 36415; 80061; 82306; 83036; 84450; 84460

== ENCOUNTER 2024-04-21 13:11 | Outpatient (AMB) | payer OTHER, SELFPAY ==
[2024-04-21 13:28] VITALS: BP 150/90; PULSE 90; O2SAT 98; BMI 43.9
--- NOTE | 2024-04-21 13:28 | MHC.PC.OV ---
Vital Signs 04/21/24 13:28 Height 5 ft 2 in Weight 240 lb BMI 43.9 BP 150/90 H Blood Pressure Location Rt brachial Position Sitting Pulse 90 Pulse Source Pulse Oximeter Pulse Oximetry (%) 98 Oxygen Delivery Method Room Air Intake Visit Reasons: 5 month follow up Intake Note: Pt is here today for her 5mo. f/u Allergies latex [LATEX] Allergy (Intermediate, Verified 04/21/24 13:38) RASH Medication List - Last Reconciled 04/21/24 by Gracie Bruec MD No Known Home Meds Tobacco use date assessed: 04/21/24 Dental Screening Dental Screen Date: 04/21/24 Did you have a dental visit in the last 12 months?: Yes Did you have a dental problem in the last 6 months where you did not have access to dental care?: No Was dental information given to patient?: Patient has dentist HPI 5 month follow up HPI Details The patient is a 58-year-old female presenting with chest tightness and elevated blood pressure. The patient reports experiencing chest tightness, primarily when sitting in the lobby, and acknowledges episodes of dizziness. The patient has a history of elevated blood pressure, which is believed to be exacerbated by stress from a challenging and toxic work environment. Previous EKG conducted on 02/14/22 was normal, and recent blood work showed an elevated LDL cholesterol level, which had increased from 160 to 186. The A1c level was 5.3, indicating normal blood glucose control. Lifestyle factors, including job-related stres, and dietary habits, were discussed concerning blood pressure and cholesterol levels. The patient also reports symptoms of anxiety and possible depression, which may contribute to her overall health status. 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 - Housing: Lives alone. - Nutritional Intake: Consumes lunch meats, bread, and occasionally misses fruits in the diet. - Exercise and Functional Status: No specific exercise mentioned. Possible decreased activity levels due to work stress. - Stressors: High job-related stress due to a toxic work environment and management difficulties. - Weight Management: Reports weight increase from 242 pounds to 270 pounds, likely due to stress. [facility] Medical History (Updated 04/25/24 @ 18:14 by Gracie Bruce MD) Morbid obesity Depression with anxiety Essential hypertension CHEK2 gene mutation positive Hammertoe of second toe of right foot Impaired fasting glucose Vitamin D deficiency Family history of breast cancer in sister Menopause Influenza vaccination declined Dermatitis Dysfunctional uterine bleeding Obesity Dyslipidemia Surgical History History of hammertoe correction History of colonoscopy History of bunionectomy Family History Father Myocardial infarction HTN (hypertension) CVD (cardiovascular disease) Mother CKD (chronic kidney disease) CVD (cardiovascular disease) Diabetes mellitus Maternal Grandfather Diabetes mellitus Sister Mental health disorder Sister Mental health disorder Social History Housing: House Alcohol intake: never Patient Tobacco Use Status: Never used Tobacco e-Cigarette/Vaping Use: Never Used service: No Current occupational status: employed Cognitive needs: No Hearing needs: No Vision needs: Yes Questionnaire PHQ-9 Over the last 2 weeks, how often have you been bothered by any of the following problems? 1. Little interest or pleasure in doing things: several days 2. Feeling down, depressed, or hopeless: more than half the days 3. Trouble falling or staying asleep, or sleeping too much: more than half the days 4. Feeling tired or having little energy: more than half the days 5. Poor appetite or overeating: more than half the days 6. Feeling bad about yourself - or that you are a failure or have let yourself or your family down: several days 7. Trouble concentrating on things, such as reading the newspaper or watching television: several days 8. Moving or speaking so slowly that other people could have noticed. Or the opposite - being so fidgety or restless that you have been moving around a lot more than usual: more than half the days 9. Thoughts that you would be better off or of hurting yourself in some way: not at all Total score: 13 Depression Screening Interpretation: Positive (declines medications or referral for therapy) Depression Screening Done: Yes 89141 - PHQ-9 Billing: Yes Source: Developed by Drs. Esau Gonzalez, Matilde Mulligan, Adarsh Felix and colleagues, with an educational ciro from [employer]. Thrive Questionnaire Date Thrive assessed: 04/17/24 I am a: Patient What is your living situation today?: I have a steady place to live Within the past 12 months, did the food you bought not last and you didn't have the money to get more?: Never true Within the past 12 months, did you worry whether your food would run out before you got money to buy more?: Sometimes True Do you have trouble paying for medicines?: No Do you have trouble getting transportation to medical appointments?: No Do you have trouble paying your heating and electricity bill?: No Do you have trouble taking care of your child, family member or friend?: No Do you have trouble with day-to-day activities such as bathing, preparing meals, shopping, managing finances, etc.?: No Are you currently unemployed and looking for a job?: No Are you interested in more education?: No Please select the resources that you would like help with: Food and Paying for medicine Currently or been in a relationship where the following occur: I choose not to answer THRIVE Score: 1 AUDIT C Alcohol Use Questionnaire (AUDIT-C) 2. How many drinks containing alcohol do you have on a typical day when you are drinking?: 1 or 2 3. How often do you have six or more drinks on one occasion?: Never Total Score: 0 CHARLES-7 AMB Questionnaire CHARLES-7 Date CHARLES - 7 assessed: 10/28/23 Feeling nervous, anxious, or on edge: 3 = Nearly every day Not being able to stop or control worryin = Several days Worrying too much about different things: 1 = Several days Trouble relaxin = Several days Being so restless that it is hard to sit still: 0 = Not at all Becoming easily annoyed or irritable: 2 = More than half the days Feeling afraid as if something awful might happen: 1 = Several days Total CHARLES-7 score (0-4 normal; 5-9 mild; 10-14 moderate; 15-21 severe): 9 Source: Developed by Drs. Esau Gonzalez, Matilde Mulligan, Adarsh Felix and colleagues, with an educational ciro from [employer] CHARLES-7 Assessment Billing CHARLES-7 Assessment Tool: CHARLES-7 Assessment 72233 Review of Systems Const Denies headache(s) and Denies weakness Eyes Details: Goes to [facility] for her eye exam Reports no additional complaints ENT Details: Gets regular dental prophylaxis every 6 months Denies dizziness, Denies headache(s), Denies nasal congestion, Denies nasal discharge and Denies sore throat Card Reports as per HPI Resp Denies chest congestion, Denies cough and Denies wheezing GI Denies abdominal pain, Denies change in bowel habits and Denies heartburn Details: Goes to [facility] . For her routine Pap and pelvic, copy of last results requested Reports no additional complaints Musc Reports no additional complaints Skin/Breast Denies lesions and Denies rash Neuro Denies dizziness, Denies headache(s) and Denies weakness Psych Reports no additional complaints Endo Denies polydipsia and Denies polyuria Tommy/Lymph Reports no additional complaints Aller/Immun Denies seasonal rhinorrhea and Denies wheezing Physical exam (Primary Care) Vital Signs: Last Vital Signs Pulse 90 04/21/24 13:28 BP 150/90 H 04/21/24 13:28 Pulse Ox 98 04/21/24 13:28 Oxygen Delivery Method Room Air 04/21/24 13:28 BMI result Body Mass Index 43.9 Tobacco/Smoking Status: Tobacco use Status Tobacco use date assessed 04/21/24 04/21/24 13:29 Patient Tobacco Use Status Never used Tobacco 04/21/24 13:29 e-Cigarette/Vaping Use Never Used 04/21/24 13:29 PHQ-9: PHQ-9 Score PHQ-9: Total score 13 04/21/24 14:41 Depression Screening Interpretation: Positive (declines medications or referral for therapy) Thrive Assessment: Date of Thrive Assessment Date Thrive assessed 04/17/24 04/21/24 13:29 Currently or been in a relationship where the following occur: I choose not to answer Const Other: looked upset and teary-eyed during visit General: alert Nutritional Appearance: obese Orientation/consciousness: patient oriented x3 [facility] General nose exam: Normal external nose present Face and sinus: Yes face symmetric Mouth: oropharynx normal and moist mucous membranes Neck Neck: Yes full ROM, Yes no lymphadenopathy and Yes supple Chest Other: No reproducible tenderness over anterior chest wall Chest palpation & inspection: normal inspection of the chest and normal palpation of entire chest wall Resp Auscultation: clear to auscultation bilaterally Cardio Rate: regular rate Rhythm: regular rhythm Heart sounds: S1 normal heart sound present and S2 normal heart sound present GI Palpation (GI): Soft to palpation, nontender, no guarding and no masses Auscultation: normal bowel sounds Back/Spine/Pelvis Back: No back tenderness Skin General skin exam: no rashes or lesions noted Neuro General: patient oriented x3, gait normal, tone normal, moves all extremities, no focal motor deficits and CN's II-XI intact bilaterally Extrem General: Yes full ROM, Yes no clubbing, cyanosis or edema and Yes normal gait Psych Appearance: grossly normal and well kempt Mental Status: mental status grossly normal Speech and movement: Normal speech and movement present Affect: Sad affect present Thought process: Normal thought process present Results Reviewed Results Reviewed: - Labs: Previous blood tests showed A1c at 5.3, total cholesterol increased to 186, and vitamin D within normal range. - Imaging and diagnostic tests: EKG conducted on 02/14/22 was normal. Coding Level of Care Code Est Pt Level 4 (01308) Diagnoses Dyslipidemia E78.5 Essential hypertension I10 Depression with anxiety F41.8 Morbid obesity E66.01 Additional Codes PHQ-9 - 15384 - PHQ-9 Billing: Yes ([id number]) CHARLES-7 Assessment Billing - CHARLES-7 Assessment Tool: CHALRES-7 Assessment 11511 ([id number]) Assessment & Plan Assessment & Plan (1) Dyslipidemia: Code(s): E78.5 - Hyperlipidemia, unspecified Category: Medical (2) Essential hypertension: Code(s): I10 - Essential (primary) hypertension Category: Medical (3) Depression with anxiety: Code(s): F41.8 - Other specified anxiety disorders Category: Medical (4) Morbid obesity: Code(s): E66.01 - Morbid (severe) obesity due to excess calories Category: Medical Plan - Essential Hypertension: Initiate lisinopril 5 mg once daily to manage blood pressure. Monitor blood pressure at home and follow up in June for re-evaluation and blood work. - Hyperlipidemia: Start rosuvastatin 5 mg every other day initially to minimize side effects, such as muscle pain. Gradually increase to daily dosage after a week if tolerated. Re-evaluate cholesterol levels after three months. - Depression and Anxiety: Encourage consulting with a therapist for management of anxiety and depression. Consider low-dose antidepressants if needed but deferred for now per patient?s preference. - Preventative Care: Schedule a bone density test upon confirmation with the insurance for coverage. Continue with vitamin D supplementation, 2000 units daily. I discussed with the patient the importance of addressing her blood pressure proactively due to the potential risks associated with sustained hypertension, including cardiovascular diseases. Regarding dyslipidemia, I emphasized the necessity of medication to manage the high cholesterol levels despite lifestyle changes, given the increase noted in the recent labs. We reviewed the risks of muscle pain with rosuvastatin and the plan to start on a low frequency and increase as tolerated. I recommended lifestyle modifications such as healthy diet improvements and managing stress levels, including stress from her work situation. The bone density test was discussed, dependent on the patient confirming insurance coverage. I confirmed the need for regular follow-up and monitoring of her blood pressure and cholesterol levels to adjust treatment plans as required. We also talked about possible consulting a therapist for her anxiety and depression and obtaining a work note for the current stress-induced symptoms. - Implement stress-relieving measures such as yoga or meditation. - Reassess dietary intake to reduce processed foods and increase fruits and vegetables. - Confirm insurance coverage for a bone density test, and schedule it if covered. - Return for follow-up visit and blood work in June. - Watch for any side effects from new medications and report them if needed. - Seek counseling to manage stress and anxiety if interested. - Use the provided work note if unable to work due to stress symptoms. Patient was informed and verbally consented to the use of an ambient scribe for clinic note documentation during this visit. Orders: Orders Basic Metabolic Panel Fasting 06/19/24 E55.9 - Vitamin D deficiency, unspecified, E66.9 - Obesity, unspecified, E78.5 - Hyperlipidemia, unspecified, I10 - Essential (primary) hypertension Aspartate Amino Transferase 06/19/24 E55.9 - Vitamin D deficiency, unspecified, E66.9 - Obesity, unspecified, E78.5 - Hyperlipidemia, unspecified, I10 - Essential (primary) hypertension Alanine Aminotransferase 06/19/24 E55.9 - Vitamin D deficiency, unspecified, E66.9 - Obesity, unspecified, E78.5 - Hyperlipidemia, unspecified, I10 - Essential (primary) hypertension Lipid Panel 06/19/24 E55.9 - Vitamin D deficiency, unspecified, E66.9 - Obesity, unspecified, E78.5 - Hyperlipidemia, unspecified, I10 - Essential (primary) hypertension Vitamin D 25-OH Total 06/19/24 E55.9 - Vitamin D deficiency, unspecified, E66.9 - Obesity, unspecified, E78.5 - Hyperlipidemia, unspecified, I10 - Essential (primary) hypertension Medications: New lisinopril 5 mg PO DAILY 30 tabs 2RF Refilled rosuvastatin 5 mg PO DAILY 30 tabs 6RF E78.5 - Hyperlipidemia, unspecified
== END 2024-04-21 14:01 | disposition home or self-care (01) ==
PROVIDERS: PCP Internal Medicine; Visit Provider Internal Medicine
DX: E78.5 Hyperlipidemia, unspecified (principal); E66.01 Morbid (severe) obesity due to excess calories; Z68.41 Body mass index [BMI] 40.0-44.9, adult; I10 Essential (primary) hypertension; F41.8 Other specified anxiety disorders

== ENCOUNTER → 2024-04-21 13:11 | Outpatient (BNVA) | payer OTHER, SELFPAY | PROVIDERS: PCP Internal Medicine; Visit Provider Internal Medicine | DX: E78.5 Hyperlipidemia, unspecified (principal); I10 Essential (primary) hypertension; F41.8 Other specified anxiety disorders; E66.01 Morbid (severe) obesity due to excess calories; Z68.41 Body mass index [BMI] 40.0-44.9, adult; Z79.899 Other long term (current) drug therapy | CPT/HCPCS: 96127 ==

== ENCOUNTER 2024-05-25 06:35 | Day surgery (SDC) | payer OTHER, SELFPAY ==
--- OUTSIDE RECORDS SUMMARY | 2024-04-27 13:52 | XMS_ITS ---
Author Organization [facility] [place] Address [address] [place] [address] Care Team Providers Care Floating Operator Name Role Phone Janis PEDROZA, Gracie Ng Primary Care Provider Un available Rhea Ghosh Unavailable [phone] Allergies Allergen (clinical drug ingredient) Drug/Non Drug Allergy documented on EMR Reaction Allergy Type Onset Date Status Latex Latex Unknown Allergy Active Penicillin Unknown Drug Allergy Active REASON FOR VISIT Pcp-02/08, Painful toe(s) Medications Medication SIG (Take, Route, Frequency, Duration) Notes Start Date End Date Status Rosuvastatin Calcium 5 MG 1 tablet Orall y Once a day for 30 day(s) Not-Taking Vitamin D 2000 Not-Taking Social History Tobacco Use: Social History Observation Description Date Details (start date - stop date) Never Smoker NA - NA Tobacco Use/Smoking Question Answer Notes Are you a: nonsmoker Additional Findings: Tobacco Non-User Current no n-smoker Alcohol Screen Question Answer Notes Did you have a drink contain ing alcohol in the past year? Yes How often did you have a dri nk containing alcohol in the past year? Monthly or less (1 point) Points 1 Interpretation Negative Tobacco use other than smoking: Question Answer Notes Are you an other tobacco user? No Problems Problem Type SNOMED Code ICD Code Onset Dates Problem Status W/U Status Risk Notes Problem [id number] Contracture , right foot (M24.574) Active confirmed Vital Signs Height 5ft2in in 10/07/2023 Weight 230 lbs 10/07/2023 BMI 42.06 kg/m2 10/07/2023 Encounters Encounter [facility] Date [facility] [address] [place] [address] 10/07/2023 Rhea Ghosh Other hammer toe(s) (acquired), right foot M20.41 ; Metatarsalgia of right foot M77.41 ; Closed dislocation of toe of right foot, subsequent encounter S93.104D and Contracture, right foot M24.574 Assessments Encounter Date Diagnosis (ICD Code) Assessment Notes Treatment Notes Treatment Clinical Notes Section Notes 10/07/2023 Other hammer toe(s) (acquired), right foot (ICD-10 - M20.41) 10/07/2023 Metatarsalgia of right foot (ICD-10 - M77.41) 10/07/2023 Closed dislocation of toe of right foot, subsequent encounter (ICD-10 - S93.104D) 10/07/2023 Contracture, right foot (ICD-10 - M24.574) Plan Of Treatment Next Appt Details Follow Up: prn, Reason: Progress Notes * Zeina VILLEGAS MDOB:1965 (58 yo F)Acc No.[id number]:10/07/2023 Progress Note Patient:?Zeina Villegas Provider:?Rhea Ghosh DPM :1965???Age:58 Y???Sex:Female D ate:10/07/2023 Address:[address] [place], [place] [id number] Pcp:Cedrick Abel Subjective: * Chief Complaints: * ???Pcp-02/08Painful toe(s) * HPI: ???Toe pain:?Nature:?sharp, aching.?Location:?2nd toe Right, forefoot.?Duration:?several years.?Onset/Cause:?gradual denies trauma.?Course:?progressive worse.?Aggrevated by:?any pressure, shoes standing/walking.?Treatments:?previous hav sx [address] Brown and ht sx with Dr Soria t1 --20 yrs ago change in shoes.? * ROS:?General/Constitutional:?Nausea?denies.?Vomiting?denies.?Hunger Thirst?denies.?Loss appetite?denies.?Chills?denies.?Fatigue?denies.?Fever?denies.?Night Sweats?denies.?Unexplained weight loss?denies.?Unexplained weight gain?denies.?HEENTM:?Dentures?denies.?Dizziness?denies.?Glasses/contacts?admits.?Retinopathy?de nies.?Blurred/double vision?denies.?TMJ?denies.?Discharge/drainage?denies.?Implants?denies.?Sore throat?denies.?Dental implants?denies.?Hard of hearing ?denies.?Difficulty chewing/swallowing/speaking?denies.?Nose bleeds?denies.?Sore mouth?denies.?Respiratory:?On Oxygen?denies.?Pneumonia/pleurisy?denies.?Bronchitis?denies.?Emphysema?denies.?C oughing?denies.?Cough blood?denies.?Shortness of breath?denies.?Wheezing?denies.?Cardiovascular:?Pacemaker?denies.?MVP?denies.?WPW?denies.?CHF?denies.?Heart attack?denies.?Septal defect?denies.?Rapid beat?denies.?Chest pain ?denies.?Atrial Fib.?denies.?Murmur/Palpitations?admits.?Gastrointestinal:?Hemorrhoids?denies.?Stomach/Abdominal pain?denies.?Dark blood stool?denies.?Irritable bowel ?denies.?Constipation?denies.?Diarrhea?denies.?Hematology:?Swelling?admits.?Clots?denies.?Varicose Veins?denies.?Bruising?admits.?Bleeding problem?denies.?Genitourinary:?Blood urine?denies.?Frequent/Painfu/urination/bladder control?denies.?Kidney stones?denies.?Infection (UTI)?denies.?Nephropathy?denies.?sex trans dis (STD)?denies.?Prostate?denies.?Musculoskeletal:?Hammertoes?denies.?Bunions?denies.?Back Pain?denies.?Muscle Cramps/ Resting?denies.?Muscle cramps / walking?denies.?Generalized aches and pains?denies.?Weakness?denies.?Integ.:?Danielle?denies.?Scars?admits.?Corns/calluses?admits.?Ingrown nails?denies.?Painful nails?denies.?Open Sores?denies.?Rashes?denies.?Neurologic:?Difficulty sleeping?denies.?Brain disorder?denies.?Numbness?denies.?Balance trouble?denies.?Confusion?denies.?Fainting/blackouts?denies.?Tingling?denies.?Tr emors?denies.? * Medical History:? * Surgical History:?bunion eyal melvin hammer toe surgery * Hospitalization/Major Diagno stic Procedure:?Denies Past Hospitalization * Family History:?Mother: dece ased, kidney/liver disease, poor circulation, foot problems, diagnosed with Family history of arthritis, Diabetic - NIDDM, Unspecified essential hypertension.?Father: , diagnosed with Unspecified heart disease.?Siblings: Sister- cancer breast and ovarian, diagnosed with Other malignant neoplasm of unspecified site.? * Social History:?Tobacco Use:?Tobacco Use/Smoking?Are you a:?nonsmoker ?Additional Findings: Tobacco Non-User?Current non-smoker ?Tobacco use other than smoking?Are you an other tobacco user??No ???Drugs/Alcohol:?Drugs?Have you used drugs other than those for medical reasons in the past 12 months??No ?Alcohol Screen?Did you have a drink containing alcohol in the past year??Yes ?How often did you have a drink containing alcohol in the past year??Monthly or less (1 point) ?Points?1 ?Interpretation?Negative ???Miscellaneous:?Caffeine: yes, 2-3 cups per day. ?no Children. ?Exercise: yes, walking. ?Marital status: single. ?Occupation: Customer Orders Clerk. * Medications:?Not-Taking/PRNR osuvastatin Calcium 5 MG Tablet 1 tablet Orally Once a dayVitamin D , Notes: 1999Medication List reviewed and reconciled with the patientNot-Taking/PRN Rosuvastatin Calcium 5 MG Tablet 1 tablet Orally Once a dayNot-Taking/PRN Vitamin D , Notes: 1999Medication List reviewed and reconciled with the patient * Allergies:?PenicillinLatexye s[Allergies Verified] Objective: * Vitals:?Ht: 5ft2in, Wt:230, BMI:42.06, Shoe size: 7-7.5, Ht-cm: 157.48 cm, Wt- k.33 kg. * Examination: ???General Examination: ?GENERAL APPEARANCE:?pleasant, alert, well nourished, well developed, well hydrated, with good attention to hygene/body habitus, and in no acute distress.?ORIENTED:?person,place, and time.?Neurological: ?SENSORY:?Neurological exam reveals intact sensorium, pain sensation normal, vibration sensation intact, pinprick sensation is normal in the lower extremities, Pt denies, anesthesia, burning, paresthesia, tingling, B/L.?Vascular: ?DP PULSES:?2/4, B/L.?PT PULSES:?2/4, B/L.?CAPILLARY FILL TIME:?3 secs. per digit, B/L.?SKIN TEMPERTURE GRADIENT OF THE LOWER EXTERMITIES:?warm to cool, proximal to distal, B/L.?HAIR GROWTH/TEXTURE/ELASTICITY/TURGOR:?normal, B/L.?PIGMENTATION:?normal, B/L.?EDEMA:?no edema, B/L.?TELANGECTASIA:?absent.?VARICOSITIES:?absent.?Dermatologic: ?SKIN FINDINGS:?Skin exam reveals Keratotic lesion(s) located at , SUB MTH (s) , 2 , Right.?Orthopedic: ?MUSCLE STRENGTH:?5/5 all groups in a symmetrical fashion , B/L.?GAIT ABNORMALITY:?pronated, abducted, B/L.?BUNION:? Medially prominent 1st MPJ, (-) Pain on palpation, Lateral tracking 1st MPJ incompletely reducible, RIGHT.?DIGITAL DEFORMITIES:? Digital contracture, PIPJ, non-reducible with WB or to push-up test, MPJ Contracture/Dorsal-medial subluxation, T2.?MPJ PATHOLOGY:?Pain, swelling, and inflammation to plantar MPJ(s) , 2nd , RIGHT.?X-Rays - IMAGING REPORT: ?Views:? 3 views of Foot, B/L, Are reviewed with the Pt.?Findings:? mild generalized decrease in bone density, elongated plantarflexed [ 2nd ] metatarsal with hypertrophied MTH Right.?Digits:? show asymmetrical joint space narrowing at the PIPJ consistent with clinical finding of hammertoe deformity, show enlarged/hypertrophied phalangeal head(s) consistent for clinical finding of hammertoe deformity, show dorsal dislocation of MTPJ, 2nd digit right foot.?HAV:? increased First Intermetatarsal angle & Hallux Abductus angle consistent with Bunion deformity noted, hypertrophy of the dorsal and medial 1st MTH without subchondral cyst, moderate.?Fracture:?Negative fractures identified.? Assessment: * Assessment: 1.?Other hammer toe(s) (acqu ired), right foot - M20.41 (Primary), Chronic problem, Worse (4)?2.?Metatarsalgia of right foot - M77.41?3.?Closed dislocation of toe of right foot, subsequent encounter - S93.104D?4.?Contracture, right foot - M24.574? Plan: * Treatment: * Procedure Codes:? * Preventive Medicine:? ??Counseling:?Discussion:?-14: Office or other outpatient visit for the evaluation and management of an established patient, which required a medically appropriate history and/or examination and MODERATE level of DECISION MAKING for: 1 OR MORE CHRONIC PROBLEM(S) THATS WORSENING, 2 STABLE CHRONIC PROBLEMS, A NEWLY DIAGNOSED PROBLEM WITH UNCERTAIN PROGNOSIS, AN ACUTE COMPLICATED INJURY WITH MULTIPLE TREATMENT OPTIONS, OR AN ACUTE PROBLEM WITH ACCOMPANYING SYSTEMIC SYMPTOMS, THAT POSE(S) A MODERATE RISK OF MORBIDITY. THIS CONDITION MAY ALSO INCLUDE RX DRUG MANAGEMENT, OR A DECISON FOR MINOR SURGERY. When using time for code selection, 30-39 min of total time was spent on the day of the encounter interpreting the data and educating the patient as to the nature of their condition, treatment options available according to their individual PMH, meds, allergies, and overall health/living conditions, as well as any potential risks or complications that may occur from a failure to adhere to, and participate in, the recommended course of therapy. The discussion included a complete verbal, and/or written explanation of the examination results, any x-rays taken, the proposed diagnosis, and outline of the treatment plan. A schedule for future care needs was also explained. The patient verbalized an understanding of the instructions at this time and agreed to be an active participant in their treatment. If the patient should think of any questions or concerns after the visit, I have encouraged the patient to call the office.?Digital Surgery:?Digital surgery was discussed with the patient, including the risks of surgery(below), vs not having surgery (persistent pain, deformity, risk for skin ulceration/infection, loss of toe), the potential surg complications, the anesthesia, and the usual post-op course. No guarentees were given. We discussed the potential procedure complications including, but not limited to: pain, swelling, bleeding, scarring, numbness, infection, delayed/non healing, floppy/unstable/shorthened toe, recurrence, failure of the procedure, overcorrection leading to plantarflexed/downward positioned toe, recurrence, need for further surgery, as well as the possibility for loss of the toe itself. We discussed the use of local anesthesia, and the usual post-op course for healing. No guarentees were given. The patient verbally indicated a full understanding of the above conversation, and any other of their questions were answered to their satisfaction. Alternatives to the procedure were also discussed, including conservative care. I also discussed the usual post-operative course and gave no guarantees regarding outcome, I discussed surgery for a hammertoe by digital fusion with K-wire fixation, I also discussed relocating the subluxed/dislocated MPJ with release/relocation of soft tissue and possible internal fixation to maintain correction, I also discussed the use of a metatarsal osteotomy to decrease MT length and improve function at the MPJ.?Podiatric Surgery Counseling:?Surgical procedures to treat the patients foot problem were discussed. We reviewed the risks of the procedure (described below) vs not having the procedure (persistent pain, deformity, risk for skin ulceration/infection, loss of toe). We discussed the potential procedure complications including, but not limited to: pain, swelling, bleeding, scarring, numbness, infection, delayed/non healing, floppy/unstable/shorthened toe, recurrence, failure of the procedure, overcorrection leading to plantarflexed/downward positioned toe, recurrence, need for further surgery, as well as the possibility for loss of the toe itself. We discussed the use of IV/Local anesthesia, and the usual post-op course for healing. No guarentees were given. The patient verbally indicated a full understanding of the above conversation, and any other of their questions were answered to their satisfaction, The patient would like to procede with surgical treatment.? * Follow Up:?prn * Images: * Sign off status: Completed true * Provider:David Ghosh DPM Date:? Generated for Lucie modi/Justin/Owen on:?04/27/2024 01:52 PM EST History and Physical Notes * HPI (History of Present Illness) Category Sub-Category Detail Notes Category Not es Toe pain Nature: sharp, aching Location: 2nd toe Right, foref oot Duration: several years Onset/Cause: gradual denies traum a Course: progressive worse Aggravated by: any pressure, shoes standing/walking Treatments: previous hav sx [address] Brown and ht sx with Dr Soria t1 --20 yrs ago change in shoes Examination Category Sub-Category Detail Notes Category Not es Neurological SENSORY: Neurological exa m reveals intact sensorium, pain sensation normal, vibration sensation intact, pinprick sensation is normal in the lower extremities, Pt denies, anesthesia, burning, paresthesia, tingling, B/L Dermatologic SKIN FINDINGS: Skin exam reveal s Keratotic lesion(s) located at , SUB MTH (s) , 2 , Right Orthopedic GAIT ABNORMALITY: pronated, abducted, B/L BUNION: Medially prominent 1 st MPJ, (-) Pain on palpation, Lateral tracking 1st MPJ incompletely reducible, RIGHT DIGITAL DEFORMITIES: Digital contracture , PIPJ, non-reducible with WB or to push-up test, MPJ Contracture/Dorsal-medial subluxation, T2 MPJ PATHOLOGY: Pain, swelling, and inflammation to plantar MPJ(s) , 2nd , RIGHT MUSCLE STRENGTH: 5/5 all groups in a symmetrical fashion , B/L General Examination GENERAL APPEARANCE: pleasant , alert, well nourished, well developed, well hydrated, with good attention to hygene/body habitus, and in no acute distress ORIENTED: person,place, and ti me Vascular DP PULSES(B): 2/4, B/L PT PULSES(B): 2/4, B/L CAPILLARY FILL TIME: 3 secs. per digit, B/L TEMPERTURE GRADIENT(C): warm to cool, pr oximal to distal, B/L TROPHIC CONDITION-TEXTURE/ELASTICITY/TURGOR/HAIR GROWTH(B): normal, B/L EDEMA(C): no edema, B/L TELANGECTASIA: absent VARICOSITIES: absent PIGMENTATION: normal, B/L X-Rays - IMAGING REPORT Findings: mild gen eralized decrease in bone density, elongated plantarflexed [ 2nd ] metatarsal with hypertrophied MTH Right Fracture: Negative fractures i dentified Digits: show asymmetrical rory int space narrowing at the PIPJ consistent with clinical finding of hammertoe deformity, show enlarged/hypertrophied phalangeal head(s) consistent for clinical finding of hammertoe deformity, show dorsal dislocation of MTPJ, 2nd digit right foot HAV: increased First Inte rmetatarsal angle & Hallux Abductus angle consistent with Bunion deformity noted, hypertrophy of the dorsal and medial 1st MTH without subchondral cyst, moderate Views: 3 views of Foot, B/L , Are reviewed with the Pt
--- OUTSIDE RECORDS SUMMARY | 2024-04-27 13:52 | XMS_ITS ---
Author Organization [facility] Address [address] [place] [address] Care Team Providers Care Automation Machine Builder Name Role Phone Janis PEDROZA, Gracie Ng Primary Care Provider Un available Rhea Ghosh Unavailable [phone] REASON FOR VISIT pending sx booking process Encounters Encounter Location Date Provider Diagnosis [facility] [address] [place] [address] 10/08/2023 Rhea Ghosh Plan Of Treatment No Information Progress Notes * Zeina VILLEGAS MDOB:1965 (58 yo F)Acc No.[id number]:10/08/2023 Patient:?Zeina VILLEGAS :1965???Age:58 Y???Sex:Female Address:[address] [place] [address] * * Date:?
--- OUTSIDE RECORDS SUMMARY | 2024-04-27 13:52 | XMS_ITS | Patient Health Record ---
[facility] Address [address] [place] [address] Care Team Providers Care Finisher Fine Diamond Dies Name Role Phone Janis PEDROZA, Gracie Ng Primary Care Provider Un available Davina Rhea Unavailable [phone] Allergies Allergen (clinical drug ingredient) Drug/Non Drug Allergy documented on EMR Reaction Allergy Type Onset Date Status Latex Latex Unknown Allergy Active Penicillin Unknown Drug Allergy Active Reason For Referral No Information Medications Medication SIG (Take, Route, Frequency, Duration) Notes Start Date End Date Status Rosuvastatin Calcium 5 MG 1 tablet Orall y Once a day for 30 day(s) Not-Taking Vitamin D 1999 Not-Taking Social History Tobacco Use: Social History [...] Problem Status W/U Status Risk Notes Problem Acquired hallux valgus (04046934) Hallux valgus (acquired), left foot (M20.12) Active confirmed Problem Acquired hallux valgus (37323259) Hallux valgus (acquired), right foot (M20.11) Active confirmed Problem [id number] Contracture , right foot (M24.574) Active confirmed Problem Acquired hammer toe of right foot (9771977895213923) Other hammer toe(s) (acquired), right foot (M20.41) Active confirmed Problem Acquired hammer toe of left foot (7398463024093477) Other hammer toe(s) (acquired), left foot (M20.42) Active confirmed Vital Signs Height 5ft2in in 10/07/2023 Weight 230 lbs 10/07/2023 BMI 42.06 kg/m2 10/07/2023 Encounters Encounter Location Date Provider Diagnosis [facility] [address] [address] 10/07/2023 Rhea Ghosh Other hammer toe(s) (acquired), right foot M20.41 ; Metatarsalgia of right foot M77.41 ; Closed dislocation of toe of right foot, subsequent encounter S93.104D and Contracture, right foot M24.[address] [facility] [address] 10/08/2023 [facility] [address] 08/19/2023 Rhea Ghosh Assessments Encounter Date Diagnosis (ICD Code) Assessment Notes Treatment Notes Treatment Clinical Notes Section Notes 10/07/2023 Other hammer toe(s) (acquired), right foot (ICD-10 - M20.41) 10/07/2023 Metatarsalgia of right foot (ICD-10 - M77.41) 10/07/2023 Closed dislocation of toe of right foot, subsequent encounter (ICD-10 - S93.104D) 10/07/2023 Contracture, right foot (ICD-10 - M24.574) Plan Of Treatment Pending Test Test Name Order Date X ray : Foot, left 3V 10/02/2022 X ray : Foot, right 3V 10/02/2022 Insurance Providers Payer Name Payer Address Payer Phone Subscriber Number Group Number Insured Name Patient Relationship to Insured Coverage Start Date Coverage End Date [facility] [address] [place] [address] [id number] Zeina Villegas Self - patient is the insured Medical (General) History Medical History History ICD Code Arthritis Back,Hip,and Knee pain CAD (Cholesterol) covid-19 Chicken pox Surgical History Surgery Date(Month/Year) bunion surgery hammer toe surgery
--- OUTSIDE RECORDS SUMMARY | 2024-04-27 13:52 | XMS_ITS ---
Author Organization [facility] Address [address] [place] [address] Care Team Providers Care Deblocker Name Role Phone Janis PEDROZA, Gracie Ng Primary Care Provider Un available Rhea Ghosh Unavailable [phone] REASON FOR VISIT interested in sx Encounters Encounter Location Date Provider Diagnosis [facility] [address] [place] [address] 08/19/2023 Rhea Ghosh Plan Of Treatment No Information Progress Notes * Zeina VILLEGAS MDOB:1965 (58 yo F)Acc No.[id number]:08/19/2023 Patient:?Zeina Villegas :1965???Age:58 Y???Sex:Female Address:[address] [place] [address] * true * Date:? Generated for Nidhii rian/Justin/eTransmitting on:?04/27/2024 01:52 PM EST
--- NOTE | 2024-05-24 09:09 | P.CONAN_ITS ---
Documented by User: Nely Tucker NP 05/24/24 09:10 HPI - Anesthesia Eval Consult details Narrative: 59yo F for Colonoscopy PMFSH Active Problems Active Problems: All Active Problems Morbid obesity (Acute) Depression with anxiety (Acute) Essential hypertension (Acute) CHEK2 gene mutation positive (Acute) Hammertoe of second toe of right foot (Acute) Impaired fasting glucose (Acute) Vitamin D deficiency (Acute) Family history of breast cancer in sister (Acute) Menopause (Acute) Influenza vaccination declined (Acute) Obesity (Acute) Dyslipidemia (Acute) Past Medical History Medical History (Updated 04/25/24 @ 18:14 by Gracie Bruce MD) Morbid obesity Depression with anxiety Essential hypertension CHEK2 gene mutation positive Hammertoe of second toe of right foot Impaired fasting glucose Vitamin D deficiency Family history of breast cancer in sister Menopause Influenza vaccination declined Dermatitis Dysfunctional uterine bleeding Obesity Dyslipidemia Family History Family History Father Myocardial infarction HTN (hypertension) CVD (cardiovascular disease) Mother CKD (chronic kidney disease) CVD (cardiovascular disease) Diabetes mellitus Maternal Grandfather Diabetes mellitus Sister Mental health disorder Sister Mental health disorder Surgical History Surgical History History of hammertoe correction History of colonoscopy History of bunionectomy Social History Social History Housing: House Alcohol intake: never Patient Tobacco Use Status: Never used Tobacco e-Cigarette/Vaping Use: Never Used Use of substances other than those prescribed or required for medical reasons: No Have you been hit, kicked, punched, or otherwise hurt by someone within the past year? If so, by whom?: No Are you DNR?: No Advance Directives: No Advance Directives Information Provided: Yes Recently lost weight without trying: No service: No Current occupational status: employed Cognitive needs: No Hearing needs: No Vision needs: Yes Meds Allergies Allergy/AdvReac Type Severity Reaction Status Date / Time latex [LATEX] Allergy Intermediate RASH Verified 04/21/24 13:38 Assessment and Plan Assessment Anesthesia Assessment: Chart Reviewed Documented by User: José Miguel Osborn MD 05/25/24 07:58 [facility] Past Medical History Medical History (Updated 04/25/24 @ 18:14 by Gracie Bruce MD) Morbid obesity Depression with anxiety Essential hypertension CHEK2 gene mutation positive Hammertoe of second toe of right foot Impaired fasting glucose Vitamin D deficiency Family history of breast cancer in sister Menopause Influenza vaccination declined Dermatitis Dysfunctional uterine bleeding Obesity Dyslipidemia Family History Family History Father Myocardial infarction HTN (hypertension) CVD (cardiovascular disease) Mother CKD (chronic kidney disease) CVD (cardiovascular disease) Diabetes mellitus Maternal Grandfather Diabetes mellitus Sister Mental health disorder Sister Mental health disorder Family history of problems with anesthesia: No Surgical History Surgical History History of hammertoe correction History of colonoscopy History of bunionectomy History of Problems with Anesthesia: No Social History Social History Housing: House Alcohol intake: never Patient Tobacco Use Status: Never used Tobacco e-Cigarette/Vaping Use: Never Used Use of substances other than those prescribed or required for medical reasons: No Have you been hit, kicked, punched, or otherwise hurt by someone within the past year? If so, by whom?: No Are you DNR?: No Advance Directives: No Advance Directives Information Provided: Yes Recently lost weight without trying: No service: No Current occupational status: employed Cognitive needs: No Hearing needs: No Vision needs: Yes Meds Allergies Allergy/AdvReac Type Severity Reaction Status Date / Time latex [LATEX] Allergy Intermediate RASH Verified 04/21/24 13:38 Exam Airway Mallampati Class: I TM Dist: <=3cm Neck ROM: Full Loose/Missing/Broken Teeth: No Heart: ok Lungs: ok Assessment and Plan Assessment Anesthesia Assessment: Anesthesia Plan Discussed Final Anesthetic Review Family History of Problems with Anesthesia: No History of Problems with Anesthesia: No NPO: Yes ASA Class: III Final Preanesthetic Review: No Changes in Pt Med Stat, Meds/Allgs Chart Reviewed, Consent Obtained/Reviewed and Anes Risks/Benef Reviewed Patient Risk: Intermediate Procedure Risk: Low Anesthetic Plan Anesthetic Plan: MAC: and Agree w/ Assess. and Plan Disposition: Standard PACU
--- OUTSIDE RECORDS SUMMARY | 2024-05-25 06:37 | XMS_ITS | Patient Health Record ---
[facility] Address [address] [place] [address] Care Team Providers Care Numerical Control Nesting Operator Name Role Phone Janis PEDROZA, Gracie Ng Primary Care Provider Un available Davina Rhea Unavailable [phone] Allergies Allergen (clinical drug ingredient) Drug/Non Drug [...] Status Risk Notes Problem Acquired hallux valgus (89629399) Hallux valgus (acquired), left foot (M20.12) Active confirmed Problem Acquired hallux valgus (91968577) Hallux valgus (acquired), right foot (M20.11) Active confirmed Problem [id number] Contracture , right foot (M24.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) Active confirmed Problem Acquired hammer toe of right foot (8218392444565606) Other hammer toe(s) (acquired), right foot (M20.41) Active confirmed Problem Acquired hammer toe of left foot (5544252419619537) Other hammer toe(s) (acquired), left foot (M20.42) Active confirmed Vital Signs Height 5ft2in in 10/07/2023 Weight 230 lbs 10/07/2023 BMI 42.06 kg/m2 10/07/2023 Encounters Encounter Location Date Provider Diagnosis [facility] [address] [address] 10/07/2023 Rhea Ghosh Other hammer toe(s) (acquired), right foot M20.41 ; Metatarsalgia of right foot M77.41 ; Closed dislocation of toe of right foot, subsequent encounter S93.104D and Contracture, right foot M24.574 [facility] [address] 10/08/2023 [facility]hea Ghosh [facility] [address] 08/19/2023 Rhea Ghosh Assessments Encounter Date Diagnosis [...] Insured Coverage Start Date Coverage End Date [facility] [address] [place] [address] [phone] [id number] Zeina Villegas Self - patient is the insured Medical (General) History Medical History History ICD Code Arthritis Back,Hip,and Knee pain CAD (Cholesterol) covid-19 Chicken pox Surgical History Surgery Date(Month/Year) bunion surgery hammer toe surgery
--- OUTSIDE RECORDS SUMMARY | 2024-05-25 06:37 | XMS_ITS ---
Author Organization [facility] [place] Address [address] 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 ?Marital status: single. ?Occupation: Data Modeler. * Medications:?Not-Taking/PRNR osuvastatin Calcium 5 MG Tablet [...] Ghosh DPM Date:? Generated for Lucie modi/Justin/Owen on:?05/25/2024 06:37 AM EST History and Physical Notes * HPI [...] ORIENTED: person,place, and ti me Vascular DP PULSES (B): 2/4, B/L PT PULSES (B): 2/4, B/L CAPILLARY FILL TIME: 3 secs. per digit, B/L TEMPERTURE GRADIENT (C): warm to cool, p roximal to distal, B/L TROPHIC CONDITION-TEXTURE/ELASTICITY/TURGOR/HAIR GROWTH (B): normal, B/L EDEMA (C): no edema, B/L TELANGECTASIA: absent VARICOSITIES: absent [...]
--- OUTSIDE RECORDS SUMMARY | 2024-05-25 06:37 | XMS_ITS ---
Author Organization [facility] Address [address] [place] [address] Care Team Providers Care Administrative Support Clerk Name Role Phone Janis PEDROZA, Gracie Ng Primary Care Provider Un available Rhea Ghosh Unavailable [phone] REASON FOR VISIT interested in sx Encounters Encounter Location Date Provider Diagnosis [facility] [address] [place] [address] 08/19/2023 Rhea Ghosh Plan Of Treatment No Information Progress Notes * Zeina VILLEGAS MDOB:1965 (58 yo F)Acc No.[id number]:08/19/2023 Patient:?Zeina Villegas :1965???Age:58 Y???Sex:Female Address:[address] [place] [address] * true * Date:? Generated for Nidhii rian/Justin/eTransmitting on:?05/25/2024 06:37 AM EST
[2024-05-25 07:13] VITALS: BMI 42.4
[2024-05-25 07:16] VITALS: BP 144/86; PULSE 88; RESP 16; TEMP 36.8; O2SAT 98
[2024-05-25] MEDS: Lactated Ringers 1,000 ML 100 ML IVCONT (07:25)
--- NOTE | 2024-05-25 07:58 | MHC.SHP ---
Pre-Procedural Eval Section A - 24 Hr Update-Section A only Date of Service: 05/25/24 Section B - Complete if H&P > 30 days Chief Complaint: Encounter for screening for malignant neoplasm of Details of Present Illness: CHEK2 gene mutation positive Hammertoe of second toe of right foot Impaired fasting glucose Vitamin D deficiency Family history of breast cancer in sister Menopause Influenza vaccination declined Dermatitis Dysfunctional uterine bleeding Obesity Dyslipidemia Surgical History History of hammertoe correction History of colonoscopy History of bunionectomy Present Medications: see Short Stay Collaborative assessment Allergies: Allergies Allergy/AdvReac Type Severity Reaction Status Date / Time latex [LATEX] Allergy Intermediate RASH Verified 04/21/24 13:38 Review of Systems Review of Systems Comment: Ten point ROS negative Exam Exam Comment: Gen appear: No acute distress HEENT: no icterus Chest: No overt resp distress Abd: soft, nontender, nondistended Psych: Stable affect, answering questions appropriately Neuro: A/Ox3 noted to move all extremities spontaneously Ext: no peripheral edema Plan Diagnosis/Plan: Unchanged I have reviewed the history and physical and performed a pertinent physical examination on my patient. No changes have occurred unless specified. Time Spent With Patient Time: Total time managing care of this patient today ____ minutes.
--- NOTE | 2024-05-25 08:20 | P.OPN-COLO_ITS ---
Colonoscopy Operative Note Operative Note Date of Service: 05/25/24 Narrative: Procedure: Colonoscopy Indication: Screening, Chek 2 mutation Endoscopist: Christa Ambrocio MD Anesthesia Provider: José Miguel Osborn MD Anesthesia type: MAC Instrument: Olympus [id number]-H190L Consent: Indication, risks vs benefits, and alternatives were discussed with the patient who gave written informed consent to proceed. EKG, pulse, pulse oximetry and blood pressure were monitored throughout the procedure. Please see anesthesia flowsheet. Procedure: The patient was brought to the procedure room and placed in the left lateral decubitus position. IV medications were administered by the anesthesia provider in attendance. A digital rectal exam was performed which was normal. A distal attachment cap was affixed to the tip of the colonoscope which was then inserted through the anus and advanced through the colon to the cecum at 75 cm,and terminal ileum. Appendiceal orifice and ileocecal valve were identified. Mucosa was carefully examined under high definition white light as the instrument was slowly withdrawn in a retrograde panoramic fashion. Retroflexion was performed in rectum. The procedure was not difficult. There were no immediate obvious complications. The quality of the prep was BBPS: 3+2+3 = adequate Withdrawal time 7 minutes. Limitations: No limitations. Findings: Mucosa: Normal to cecum and terminal ileum. Protruding lesions: * Medium internal hemorrhoids without stigmata of recent bleeding. Excavated lesions: * Few rare diverticula of sigmoid colon. Impression: 1. Normal colon and terminal ileum mucosa 2. Internal hemorrhoids 3. Diverticulosis Recommendations: - Chek 2 typically not associated with high colorectal ca risk however pt mentions she was specifically counseled for increased CRC screening. Recommend obtaining genetic testing results to determine the interval for repeat colo.
[2024-05-25 08:56] VITALS: BP 142/69; PULSE 68; RESP 18; TEMP 36.8; O2SAT 97
[2024-05-25 09:11] VITALS: BP 142/69; PULSE 68; RESP 18; TEMP 36.7; O2SAT 18
== END 2024-05-25 09:54 | disposition home or self-care (01) ==
PROVIDERS: PCP Internal Medicine; Visit Provider Internal Medicine
PROC: 0DJD8ZZ Inspection of Lower Intestinal Tract, Via Natural or Artificial Opening Endoscopic (ICD-10-PCS; CPT 45378; principal; 2024-05-25 08:10)
DX: Z12.11 Encounter for screening for malignant neoplasm of colon (principal); Z15.89 Genetic susceptibility to other disease; K57.30 Diverticulosis of large intestine without perforation or abscess without bleeding; K64.8 Other hemorrhoids; Z80.3 Family history of malignant neoplasm of breast; R73.01 Impaired fasting glucose; E78.5 Hyperlipidemia, unspecified; E55.9 Vitamin D deficiency, unspecified; L30.9 Dermatitis, unspecified; N93.9 Abnormal uterine and vaginal bleeding, unspecified; Z78.0 Asymptomatic menopausal state; E66.9 Obesity, unspecified; Z68.41 Body mass index [BMI] 40.0-44.9, adult; Z79.899 Other long term (current) drug therapy; Z91.040 Latex allergy status
CPT/HCPCS: 45378; J2003; J2704

== ENCOUNTER → 2024-05-25 06:35 | Outpatient (BNV) | payer OTHER, SELFPAY | PROVIDERS: PCP Internal Medicine; Visit Provider Internal Medicine | DX: Z12.11 Encounter for screening for malignant neoplasm of colon (principal); Z15.09 Genetic susceptibility to other malignant neoplasm; K57.30 Diverticulosis of large intestine without perforation or abscess without bleeding; K64.8 Other hemorrhoids | CPT/HCPCS: 45378 ==

== ENCOUNTER 2024-06-21 08:22 | Outpatient (REF) | payer OTHER, SELFPAY ==
[2024-06-21 09:37] LABS: Alanine Aminotransferase 22 U/L (0-31); Anion Gap 15 (12-20); Aspartate Amino Transferase 24 U/L (5-31); Blood Urea Nitrogen 14 mg/dL (9-16); Calcium 9.5 mg/dL (8.4-10.2); Carbon Dioxide 22 mmol/L (22-29); Chloride 107 mmol/L (96-108); Cholesterol 200 mg/dL (<200); Estimated Glomerular Filt Rate > 60; Glucose Fasting 93 mg/dL (60-99); HDL Cholesterol 61 mg/dL (>40); LDL Cholesterol Calculated 122 mg/dL (<100); Potassium 3.8 mmol/L (3.3-5.1); Sodium 140 mmol/L (135-145); Triglycerides 89 mg/dL (<150)
[2024-06-21 09:55] LABS: Vitamin D 25-OH Total 39.6 ng/mL (>30)
== END 2024-06-21 08:23 | disposition home or self-care (01) ==
LOC: HO.LAB 08:22
PROVIDERS: PCP Internal Medicine; Visit Provider Internal Medicine
DX: I10 Essential (primary) hypertension (principal); E66.9 Obesity, unspecified; E78.5 Hyperlipidemia, unspecified; E55.9 Vitamin D deficiency, unspecified
CPT/HCPCS: 36415; 80048; 80061; 82306; 84450; 84460

== ENCOUNTER 2024-06-22 12:58 | Outpatient (AMB) | payer OTHER, SELFPAY ==
[2024-06-22 13:13] VITALS: BP 104/70; PULSE 73; RESP 18; TEMP 36.7; O2SAT 97; BMI 43.5
--- NOTE | 2024-06-22 13:13 | MHC.PC.OV ---
Vital Signs 06/22/24 13:13 Height 5 ft 2 in Weight 238 lb BMI 43.5 BP 104/70 Blood Pressure Location Lt brachial Position Sitting Respiration 18 Pulse 73 Pulse Source Pulse Oximeter Temp 98.0 F Temp Source Oral Pulse Oximetry (%) 97 Oxygen Delivery Method Room Air Intake Visit Reasons: 2 months follow up Intake Note: Pt is here today for her 2mo. f/u Allergies latex [LATEX] Allergy (Intermediate, Verified 06/22/24 13:35) RASH Medication List - Last Reconciled 06/22/24 by Gracie Bruce MD lisinopril 5 mg PO DAILY rosuvastatin 5 mg PO DAILY Tobacco use date assessed: 06/22/24 Dental Screening Dental Screen Date: 06/22/24 Did you have a dental visit in the last 12 months?: Yes Did you have a dental problem in the last 6 months where you did not have access to dental care?: No Was dental information given to patient?: Patient has dentist HPI 2 months follow up HPI Details 59-year-old lady here today for follow-up on her hypertension and hyperlipidemia. Currently on lisinopril 5 mg daily and takes rosuvastatin 5 mg every other day she has been feeling well, and attributes also improvement in her blood pressure due to lack of stress now at work. She has been compliant with following recommended diet, but astill not getting any regular exercise. [facility] Medical History (Updated 06/22/24 @ 13:45 by Gracie Bruce MD) Morbid obesity Depression with anxiety Essential hypertension CHEK2 gene mutation positive Hammertoe of second toe of right foot Impaired fasting glucose Vitamin D deficiency Family history of breast cancer in sister Menopause Influenza vaccination declined Dermatitis Dysfunctional uterine bleeding Obesity Dyslipidemia Surgical History History of hammertoe correction History of colonoscopy History of bunionectomy Family History Father Myocardial infarction HTN (hypertension) CVD (cardiovascular disease) Mother CKD (chronic kidney disease) CVD (cardiovascular disease) Diabetes mellitus Maternal Grandfather Diabetes mellitus Sister Mental health disorder Sister Mental health disorder Social History Housing: House Alcohol intake: never Patient Tobacco Use Status: Never used Tobacco e-Cigarette/Vaping Use: Never Used service: No Current occupational status: employed Cognitive needs: No Hearing needs: No Vision needs: Yes Questionnaire PHQ-9 Over the last 2 weeks, how often have you been bothered by any of the following problems? 1. Little interest or pleasure in doing things: not at all 2. Feeling down, depressed, or hopeless: not at all 3. Trouble falling or staying asleep, or sleeping too much: not at all 4. Feeling tired or having little energy: not at all 5. Poor appetite or overeating: not at all 6. Feeling bad about yourself - or that you are a failure or have let yourself or your family down: not at all 7. Trouble concentrating on things, such as reading the newspaper or watching television: not at all 8. Moving or speaking so slowly that other people could have noticed. Or the opposite - being so fidgety or restless that you have been moving around a lot more than usual: not at all 9. Thoughts that you would be better off or of hurting yourself in some way: not at all Total score: 0 Depression Screening Interpretation: Negative Depression Screening Done: Yes 12352 - PHQ-9 Billing: Yes Source: Developed by Drs. Esau Gonzalez, Matilde Mulligan, Adarsh Felix and colleagues, with an educational ciro from [employer]. Thrive Questionnaire Date Thrive assessed: 06/22/24 I am a: Patient What is your living situation today?: I have a steady place to live Within the past 12 months, did the food you bought not last and you didn't have the money to get more?: I choose not to answer this question Within the past 12 months, did you worry whether your food would run out before you got money to buy more?: I choose not to answer this question Do you have trouble paying for medicines?: No Do you have trouble getting transportation to medical appointments?: No Do you have trouble paying your heating and electricity bill?: No Do you have trouble taking care of your child, family member or friend?: No Do you have trouble with day-to-day activities such as bathing, preparing meals, shopping, managing finances, etc.?: No Are you currently unemployed and looking for a job?: No Are you interested in more education?: No Please select the resources that you would like help with: None Currently or been in a relationship where the following occur: No concerns reported THRIVE Score: 0 AUDIT C Alcohol Use Questionnaire (AUDIT-C) 1. How often do you have a drink containing alcohol?: Monthly or less 2. How many drinks containing alcohol do you have on a typical day when you are drinking?: 1 or 2 3. How often do you have six or more drinks on one occasion?: Never Total Score: 1 CHARLES-7 AMB Questionnaire CHARLES-7 Date CHARLES - 7 assessed: 06/22/24 Feeling nervous, anxious, or on edge: 0 = Not at all Not being able to stop or control worryin = Not at all Worrying too much about different things: 0 = Not at all Trouble relaxin = Not at all Being so restless that it is hard to sit still: 0 = Not at all Becoming easily annoyed or irritable: 0 = Not at all Feeling afraid as if something awful might happen: 0 = Not at all Total CHARLES-7 score (0-4 normal; 5-9 mild; 10-14 moderate; 15-21 severe): 0 Source: Developed by Drs. Esau Gonzalez, Matilde Mulligan, Adarsh Felix and colleagues, with an educational crio from [employer]. CHARLES-7 Assessment Billing CHARLES-7 Assessment Tool: CHARLES-7 Assessment 30200 Review of Systems Const Denies headache(s) and Denies weakness ENT Denies dizziness, Denies headache(s) and Denies nasal congestion Card Denies chest pain, Denies chest pain with activity, Denies irregular heart rhythm, Denies leg edema and Denies lightheadedness Resp Denies chest congestion, Denies cough and Denies wheezing GI Denies abdominal pain, Denies change in bowel habits and Denies heartburn Details: [facility] . For her routine Pap and pelvic, copy of last results requested Reports no additional complaints Musc Reports no additional complaints Neuro Denies dizziness, Denies headache(s) and Denies weakness Psych Reports no additional complaints Endo Denies polydipsia and Denies polyuria Tommy/Lymph Reports no additional complaints Aller/Immun Denies seasonal rhinorrhea and Denies wheezing Physical exam (Primary Care) Vital Signs: Last Vital Signs Temp 98.0 F 06/22/24 13:13 Pulse 73 06/22/24 13:13 Resp 18 06/22/24 13:13 BP 104/70 06/22/24 13:13 Pulse Ox 97 06/22/24 13:13 Oxygen Delivery Method Room Air 06/22/24 13:13 BMI result Body Mass Index 43.5 Tobacco/Smoking Status: Tobacco use Status Tobacco use date assessed 06/22/24 06/22/24 13:18 Patient Tobacco Use Status Never used Tobacco 06/22/24 13:18 e-Cigarette/Vaping Use Never Used 06/22/24 13:18 Depression Screening Interpretation: Negative Thrive Assessment: Date of Thrive Assessment Date Thrive assessed 04/17/24 06/22/24 13:18 Currently or been in a relationship where the following occur: No concerns reported Const General: comfortable, no acute distress and alert Nutritional Appearance: obese morbidly obese Orientation/consciousness: patient oriented x3 HENMT Mouth: Normal oral and palatal mucosa present, oropharynx normal and moist mucous membranes Neck Neck: Yes full ROM, Yes no lymphadenopathy and Yes supple Resp Auscultation: clear to auscultation bilaterally Cardio Rate: regular rate Rhythm: regular rhythm Heart sounds: S1 normal heart sound present and S2 normal heart sound present Neuro General: patient oriented x3, gait normal and no focal motor deficits Extrem General: Yes full ROM, Yes no joint enlargement and Yes normal gait Psych Appearance: grossly normal and well kempt Mental Status: mental status grossly normal Speech and movement: Normal speech and movement present Affect: normal affect Attitude: cooperative Thought process: Normal thought process present Thought content: Normal thought content present Results Reviewed Results Reviewed: Name: Zeina Villegas Age/Sex: 59/F : 1965 Unit#: [id number] Attend Dr: Gracie Bruce MD Re06/21/24 Status: DEP REF Location: [facility] Disch: SPEC : [id number] TRAE: 06/21/24 STATUS: COMP REQ : [id number] RECD: 06/21/[address]: Gracie Bruce MD COMP: 06/21/24 ENTERED: 06/21/[address] [facility] [address]: ORDERED: Met Prof Fast, AST, ALT, Lipid Panel, Vitamin D 25-OH Test Result Flag Reference Sodium 140 135-145 mmol/L Potassium 3.8 3.3-5.1 mmol/L CL 107 96-108 mmol/L CO2 22 22-29 mmol/L Gap 15 12-20 BUN 14 9-16 mg/dL Creat 0.75 0.5-1.4 mg/dL eGFR > 60 Chronic Kidney Disease: Estimated GFR < 60 mL/min/1.73m2 Severe Kidney Disease: Estimated GFR < 15 mL/min/1.73m2 FBS 93 60-99 mg/dL CA 9.5 8.4-10.2 mg/dL AST (GOT) 24 5-31 U/L ALT (GPT) 22 0-31 U/L Triglyceride 89 <150 mg/dL Desirable Triglyceride: less than 150 mg/dL Borderline High Triglyceride 150-199 mg/dL High Triglyceride: 200-499 mg/dL Very High Triglyceride: greater than or equal to 5OO mg/dL Cholesterol 200 H <200 mg/dL Desirable Cholesterol: less than 200 mg/dL Borderline High Cholesterol: 200-239 mg/dL High Cholesterol: greater than 239 mg/dL LDL Calculated 122 H <100 mg/dL Desirable LDL: less than 100 mg/dL Near Optimal/Above Optimal LDL: 110-129 mg/dL Borderline High LDL: 130-159 mg/dL High LDL: 160-189 mg/dL Very High LDL: greater than or equal to 190 mg/dL HDL 61 >40 mg/dL Desirable HDL: greater than 40 mg/dL Note: This HDL assay may give artificially low results in patients with liver disease. Vit D 25-OH Tot 39.6 >30 ng/mL Health Based Reference Values* < 20 ng/mL Deficient 20-30 ng/mL Insufficient > 30 ng/mL Sufficient Coding Level of Care Code Est Pt Level 4 (04424) Complex EM visit Add On G2211 Diagnoses Dyslipidemia E78.5 Essential hypertension I10 Additional Codes PHQ-9 - 24398 - PHQ-9 Billing: Yes ([id number]) CHARLES-7 Assessment Billing - CHARLES-7 Assessment Tool: CHARLES-7 Assessment 55813 ([id number]) Assessment & Plan Assessment & Plan (1) Dyslipidemia: Code(s): E78.5 - Hyperlipidemia, unspecified Category: Medical Plan: Reviewed recent fasting lipid results with patient which showed improvement in her triglycerides, normal LDL cholesterol and HDL. Continued on rosuvastatin 5 mg taken 1 tablet every other day (2) Essential hypertension: Code(s): I10 - Essential (primary) hypertension Category: Medical Plan: Pressure stable and controlled now with lisinopril 5 mg daily. Reinforced importance of following a low sodium diet, getting regular exercise, and lowering stress levels. Orders: Orders Aspartate Amino Transferase 11/07/24 E78.5 - Hyperlipidemia, unspecified, I10 - Essential (primary) hypertension Lipid Panel 11/07/24 E78.5 - Hyperlipidemia, unspecified, I10 - Essential (primary) hypertension Basic Metabolic Panel Fasting 11/07/24 E78.5 - Hyperlipidemia, unspecified, I10 - Essential (primary) hypertension Alanine Aminotransferase 11/07/24 E78.5 - Hyperlipidemia, unspecified, I10 - Essential (primary) hypertension Vitamin D 25-OH Total 11/07/24 E78.5 - Hyperlipidemia, unspecified, I10 - Essential (primary) hypertension Medications: Changed From rosuvastatin 5 mg PO DAILY 30 tabs 6RF E78.5 - Hyperlipidemia, unspecified To rosuvastatin 5 mg PO Q2D 3 months 45 tabs 3RF E78.5 - Hyperlipidemia, unspecified Refilled lisinopril 5 mg PO DAILY 90 tabs 2RF
== END 2024-06-22 14:33 | disposition home or self-care (01) ==
PROVIDERS: PCP Internal Medicine; Visit Provider Internal Medicine
DX: E78.5 Hyperlipidemia, unspecified (principal); I10 Essential (primary) hypertension

== ENCOUNTER → 2024-06-22 12:58 | Outpatient (BNVA) | payer OTHER, SELFPAY | PROVIDERS: PCP Internal Medicine; Visit Provider Internal Medicine | DX: E78.5 Hyperlipidemia, unspecified (principal); I10 Essential (primary) hypertension; Z79.899 Other long term (current) drug therapy | CPT/HCPCS: 96127 ==

== ENCOUNTER 2024-08-27 15:21 | Outpatient (AMB) | payer OTHER, SELFPAY ==
[2024-08-27 15:24] VITALS: BP 142/82; PULSE 76; O2SAT 98
--- NOTE | 2024-08-27 15:24 | MHC.OFFVIS ---
Vital Signs 08/27/24 15:24 Height 5 ft 2 in BMI Reason not done Patient refused/unable BP 142/82 H Blood Pressure Location Lt brachial Position Sitting Pulse 76 Pulse Source Pulse Oximeter Pulse Oximetry (%) 98 Oxygen Delivery Method Room Air Intake Visit Reasons: s/p Cristóbal colo Intake Note: ESTABLISHED PATIENT for Reason; s/p colo Changes/concerns? Pt denies any GI sx or concerns. Per operative note, pt to discuss genetics testing. Subject Scientific Research Required: No Accompanied by: Self / Same As Patient Allergies latex [LATEX] Allergy (Intermediate, Verified 08/27/24 15:25) RASH HPI HPI s/p Cristóbal colo: Details: LAST VISIT CHEK2 gene mutation positive Encounter for screening for malignant neoplasm of colon Plan Patient denies any GI, cardiac or respiratory symptoms.? Denies any issues with anesthesia in the past.? Denies any history of sleep apnea.? No history infectious diseases in the past or present.? Not on any anticoagulation therapy.?.? Patient denies melena, hematochezia, unintentional weight loss or ribbon like stools.? Discussed at length the pre-procedure,? prep, diet & medications as well as what to expect prior, during and after the procedure.?? Stressed the importance of good bowel prep.? Recommended the use of Vaseline or Calmoseptine OTC & baby wipes with bowel movements to promote comfort.? ?Patient verbalizes understanding and agrees to plan of care.? She was given the opportunity to ask questions and all questions answered.? We will see her after the procedure.? Medications New bisacodyl (Dulcolax (bisacodyl)) take 4 tabs at noon the day before your colonoscopy 20 mg (4 x 5 mg) PO ONCE 4 tabs 0RF 1 day Z12.11 polyethylene glycol 3350 (Miralax) As directed by gastroenterology department at [facility] 238 grams PO ONCE 238 grams 0RF Z12.11 COLONOSCOPY Findings: Mucosa: Normal to cecum and terminal ileum. Protruding lesions: Medium internal hemorrhoids without stigmata of recent bleeding. Excavated lesions: Few rare diverticula of sigmoid colon. Impression: 1. Normal colon and terminal ileum mucosa 2. Internal hemorrhoids 3. Diverticulosis Recommendations: - Chek 2 typically not associated with high colorectal ca risk however pt mentions she was specifically counseled for increased CRC screening. Recommend obtaining genetic testing results to determine the interval for repeat colo. TODAY'S VISIT: Patient is here today for follow-up and to discuss colonoscopy results. Patient denies any ill effects from the prep, anesthesia or procedure itself. Patient reports that she has been feeling well. Patient denies any melena, hematochezia, unintentional weight loss or ribbon like stools. Patient denies any dyspepsia, dysphagia or odynophagia. Will try to obtain and review the genetic testing so we can determine how frequently patient will need to be screened. [facility] Medical History Morbid obesity Depression with anxiety Essential hypertension CHEK2 gene mutation positive Hammertoe of second toe of right foot Impaired fasting glucose Vitamin D deficiency Family history of breast cancer in sister Menopause Influenza vaccination declined Dermatitis Dysfunctional uterine bleeding Obesity Dyslipidemia Surgical History History of hammertoe correction History of colonoscopy History of bunionectomy Family History Father Myocardial infarction HTN (hypertension) CVD (cardiovascular disease) Mother CKD (chronic kidney disease) CVD (cardiovascular disease) Diabetes mellitus Maternal Grandfather Diabetes mellitus Sister Mental health disorder Sister Mental health disorder Social History Housing: House Alcohol intake: never Patient Tobacco Use Status: Never used Tobacco e-Cigarette/Vaping Use: Never Used service: No Current occupational status: employed Cognitive needs: No Hearing needs: No Vision needs: Yes Review of Systems Const Denies weight gain and Denies weight loss ENT Reports no additional complaints, Denies dysphagia and Denies odynophagia Card Reports no additional complaints Resp Reports no additional complaints GI Denies abdominal pain, Denies belching, Denies melena, Denies bloating, Denies change in bowel habits, Denies dysphagia, Denies excessive flatus, Denies dyspepsia, Denies heartburn, Denies diarrhea, Denies loose stools, Denies nausea, Denies odynophagia and Denies vomiting Musc Reports no additional complaints Neuro Reports no additional complaints Psych Reports no additional complaints Endo Reports no additional complaints Physical Exam Vital Signs: Last Vital Signs Pulse 76 08/27/24 15:24 BP 142/82 H 08/27/24 15:24 Pulse Ox 98 08/27/24 15:24 Oxygen Delivery Method Room Air 08/27/24 15:24 Const General: healthy appearing and no acute distress Nutritional Appearance: obese Orientation/consciousness: patient oriented x3 Resp Effort & Inspection: normal respiratory effort, able to speak in complete sentences, no tracheal deviation and symmetric chest movement Auscultation: clear to auscultation bilaterally Cardio Rate: regular rate GI Inspection: Yes normal to inspection, No distended and Yes obesity Palpation (GI): Soft to palpation, not firm, nontender and No hepatosplenomegaly present Auscultation: normal bowel sounds General: Yes no CVA tenderness Back/Spine/Pelvis Back: no CVA tenderness Skin General skin exam: elasticity normal, turgor normal and dry skin Neuro General: patient oriented x3 Psych Appearance: grossly normal Mental Status: mental status grossly normal Assessment & Plan Assessment & Plan (1) CHEK2 gene mutation positive: Code(s): Z15.89 - Genetic susceptibility to other disease Category: Medical (2) Status post colonoscopy: Code(s): Z98.890 - Other specified postprocedural states Plan Genetic study report reviewed. Discussed with Dr. Ambrocio. Patient had positive pathogen mutation detected heterogeneous for pathogenic mutation in the CHEK2 gene. Risk estimate is up to a 2 fold increased risk for colon cancer. Repeat colonoscopy in 5 years. Patient will call our office if she will have any GI concerning symptoms. She is agreeable to this plan and verbalizes understanding of instructions. She was given the opportunity to ask questions and all questions answered. Thank you for allowing me to participate in her care Coding Level of Care Code Est Pt Level 3 (37498) Diagnoses CHEK2 gene mutation positive Z15.89 Status post colonoscopy Z98.890 Time Spent (min) 30 Comment 15 minutes spent with patient and additional 15 minutes spent reviewing her records
== END 2024-08-27 15:54 | disposition home or self-care (01) ==
PROVIDERS: PCP Internal Medicine; Visit Provider Nurse Practitioner Family
DX: Z15.89 Genetic susceptibility to other disease (principal); Z98.890 Other specified postprocedural states
CPT/HCPCS: 99213

== ENCOUNTER → 2024-08-27 15:21 | Outpatient (BNVA) | payer OTHER, SELFPAY | PROVIDERS: PCP Internal Medicine; Visit Provider Nurse Practitioner Family ==

== ENCOUNTER 2024-11-16 07:18 | Outpatient (REF) | payer OTHER, SELFPAY ==
[2024-11-16 08:25] LABS: Alanine Aminotransferase 18 U/L (0-31); Anion Gap 14 (12-20); Aspartate Amino Transferase 21 U/L (5-31); Blood Urea Nitrogen 19 mg/dL (9-16); Calcium 9.2 mg/dL (8.4-10.2); Carbon Dioxide 26 mmol/L (22-29); Chloride 106 mmol/L (96-108); Cholesterol 226 mg/dL (<200); Estimated Glomerular Filt Rate > 60; HDL Cholesterol 59 mg/dL (>40); Potassium 4.2 mmol/L (3.3-5.1); Sodium 142 mmol/L (135-145); Triglycerides 137 mg/dL (<150)
== END 2024-11-16 07:19 | disposition home or self-care (01) ==
LOC: HO.LAB 07:18
PROVIDERS: PCP Internal Medicine; Visit Provider Internal Medicine
DX: I10 Essential (primary) hypertension (principal); E78.5 Hyperlipidemia, unspecified
CPT/HCPCS: 36415; 80048; 80061; 82306; 84450; 84460

== ENCOUNTER 2024-11-18 10:37 | Outpatient (AMB) | payer OTHER, SELFPAY ==
[2024-11-18 11:14] VITALS: BP 130/90; PULSE 73; RESP 16; O2SAT 98; BMI 45.4
--- NOTE | 2024-11-18 11:14 | A.OFFPC_ITS ---
Vital Signs 11/18/24 11:14 Height 5 ft 2 in Weight 248 lb BMI 45.4 BP 130/90 H Blood Pressure Location Lt brachial Position Sitting Respiration 16 Pulse 73 Pulse Source Pulse Oximeter Pulse Oximetry (%) 98 Oxygen Delivery Method Room Air Intake Visit Reasons: Annual PE Intake Note: Pt is here today for her PE: last mammogram 09/29/23, colonoscopy 06/04/24 Allergies latex (LATEX) Allergy (Intermediate, Verified 11/18/24 11:19) RASH Medication List - Last Reconciled 11/18/24 by Gracie Bruce MD rosuvastatin 5 mg PO Q2D 3 months Tobacco use date assessed: 11/18/24 Dental Screening Dental Screen Date: 11/18/24 Did you have a dental visit in the last 12 months?: Yes Did you have a dental problem in the last 6 months where you did not have access to dental care?: No Was dental information given to patient?: Patient has dentist HPI Annual PE HPI Details 59 year-old lady with a history hyperten dayne and hyperlipidemia, currently controlled on lisinopril 5 mg daily and rosuvastatin 5 mg every other day here today for physical exam. She has been feeling well, compliant with following recommended diet, but admits to not getting any regular exercise. She is due now for her screening mammogram, last done in 2023. Has positive CHEK2 gene mutation, and underwent a screening colonoscopy earlier this year which showed normal colon with presence of internal hemorrhoids and diverticulosis seen. Chek 2 gene mutation is associated with a 2 fold risk for getting breast and colorectal ca does a repeat colonoscopy is due again in 5 years. [facility] Medical History (Updated 11/21/24 @ 21:31 by Gracie Bruce MD) Morbid obesity Essential hypertension CHEK2 gene mutation positive Hammertoe of second toe of right foot Impaired fasting glucose Vitamin D deficiency Family history of breast cancer in sister Menopause Influenza vaccination declined Dermatitis Dysfunctional uterine bleeding Obesity Dyslipidemia Surgical History History of hammertoe correction History of colonoscopy History of bunionectomy Family History Father Myocardial infarction HTN (hypertension) CVD (cardiovascular disease) Mother CKD (chronic kidney disease) CVD (cardiovascular disease) Diabetes mellitus Maternal Grandfather Diabetes mellitus Sister Mental health disorder Sister Mental health disorder Social History Housing: House Alcohol intake: never Patient Tobacco Use Status: Never used Tobacco e-Cigarette/Vaping Use: Never Used service: No Current occupational status: employed Cognitive needs: No Hearing needs: No Vision needs: Yes Questionnaire PHQ-9 Over the last 2 weeks, how often have you been bothered by any of the following problems? 1. Little interest or pleasure in doing things: not at all 2. Feeling down, depressed, or hopeless: not at all 3. Trouble falling or staying asleep, or sleeping too much: not at all 4. Feeling tired or having little energy: not at all 5. Poor appetite or overeating: not at all 6. Feeling bad about yourself - or that you are a failure or have let yourself or your family down: not at all 7. Trouble concentrating on things, such as reading the newspaper or watching television: not at all 8. Moving or speaking so slowly that other people could have noticed. Or the opposite - being so fidgety or restless that you have been moving around a lot more than usual: not at all 9. Thoughts that you would be better off or of hurting yourself in some way: not at all Total score: 0 Depression Screening Interpretation: Negative Depression Screening Done: Yes Source: Developed by Drs. Esau Gonzalez, Matilde Mulligan, Adarsh Felix and colleagues, with an educational ciro from [employer]. Thrive Questionnaire Date Thrive assessed: 06/22/24 I am a: Patient What is your living situation today?: I have a steady place to live Within the past 12 months, did the food you bought not last and you didn't have the money to get more?: I choose not to answer this question Within the past 12 months, did you worry whether your food would run out before you got money to buy more?: I choose not to answer this question Do you have trouble paying for medicines?: No Do you have trouble getting transportation to medical appointments?: No Do you have trouble paying your heating and electricity bill?: No Do you have trouble taking care of your child, family member or friend?: No Do you have trouble with day-to-day activities such as bathing, preparing meals, shopping, managing finances, etc.?: No Are you currently unemployed and looking for a job?: No Are you interested in more education?: No Please select the resources that you would like help with: None Currently or been in a relationship where the following occur: No concerns reported THRIVE Score: 0 CHARLES-7 AMB Questionnaire CHARLES-7 Date CHARLES - 7 assessed: 06/22/24 Source: Developed by Drs. Esau Gonzalez, Matilde Mulligan, Adarsh Felix and colleagues, with an educational ciro from [employer]. Review of Systems Const Reports no additional complaints Eyes Reports no additional complaints ENT Reports no additional complaints, Denies dysphagia and Denies odynophagia Card Reports no additional complaints Resp Reports no additional complaints GI Denies abdominal pain, Denies belching, Denies melena, Denies bloating, Denies change in bowel habits, Denies dysphagia, Denies excessive flatus, Denies dyspepsia, Denies heartburn, Denies diarrhea, Denies loose stools, Denies nausea, Denies odynophagia and Denies vomiting Denies nipple discharge Musc Reports no additional complaints Skin/Breast Denies breast skin changes, Denies breast pain, Denies breast mass and Denies nipple discharge Neuro Reports no additional complaints Psych Reports no additional complaints Endo Reports no additional complaints Tmomy/Lymph Reports no additional complaints Aller/Immun Reports no additional complaints Physical exam (Primary Care) Vital Signs: Last Vital Signs Pulse 73 11/18/24 11:14 Resp 16 11/18/24 11:14 BP 130/90 H 11/18/24 11:14 Pulse Ox 98 11/18/24 11:14 Oxygen Delivery Method Room Air 11/18/24 11:14 BMI result Body Mass Index 45.4 Tobacco/Smoking Status: Tobacco use Status Tobacco use date assessed 11/18/24 11/18/24 11:18 Patient Tobacco Use Status Never used Tobacco 11/18/24 11:18 e-Cigarette/Vaping Use Never Used 11/18/24 11:18 PHQ-9: PHQ-9 Score PHQ-9: Total score 0 11/18/24 11:20 Depression Screening Interpretation: Negative Thrive Assessment: Date of Thrive Assessment Date Thrive assessed 06/22/24 11/18/24 11:18 Currently or been in a relationship where the following occur: No concerns reported Const General: comfortable, no acute distress and alert Nutritional Appearance: obese morbidly obese Orientation/consciousness: patient oriented x3 HENMT Mouth: Normal oral and palatal mucosa present, oropharynx normal and moist mucous membranes Eyes General: appearance normal, both eyes and all related structures Neck Neck: Yes full ROM, Yes no lymphadenopathy and Yes supple Resp Auscultation: clear to auscultation bilaterally Cardio Rate: regular rate Rhythm: regular rhythm Heart sounds: S1 normal heart sound present and S2 normal heart sound present GI Palpation (GI): Soft to palpation, nontender, no guarding and no masses Auscultation: normal bowel sounds Other: Currently sees her own OBGYN for routine Pap and pelvic exam Back/Spine/Pelvis Back: No back tenderness Skin General skin exam: no rashes or lesions noted Neuro General: patient oriented x3, gait normal and no focal motor deficits Extrem General: Yes full ROM, Yes no joint enlargement and Yes normal gait Psych Appearance: grossly normal and well kempt Mental Status: mental status grossly normal Speech and movement: Normal speech and movement present Affect: normal affect Attitude: cooperative Thought process: Normal thought process present Thought content: Normal thought content present Results Reviewed Results Reviewed: Name: Zeina Villegas Age/Sex: 59/F : 1965 Unit#: [id number] Attend Dr: Gracie Bruce MD Re11/16/24 Status: DEP REF Location: [facility] Disch: SPEC : [id number] TRAE: 11/16/24 STATUS: COMP REQ : [id number] RECD: 11/16/[address]: Gracie Bruce MD COMP: 11/16/24 ENTERED: 11/16/[address]: ORDERED: Met Prof Fast, AST, ALT, Lipid Panel, Vitamin D 25-OH Test Result Flag Reference Sodium 142 135-145 mmol/L Potassium 4.2 3.3-5.1 mmol/L CL 106 96-108 mmol/L CO2 26 22-29 mmol/L Gap 14 12-20 BUN 19 H 9-16 mg/dL Creat 0.78 0.5-1.4 mg/dL eGFR > 60 Chronic Kidney Disease: Estimated GFR < 60 mL/min/1.73m2 Severe Kidney Disease: Estimated GFR < 15 mL/min/1.73m2 FBS 96 60-99 mg/dL CA 9.2 8.4-10.2 mg/dL AST (GOT) 21 5-31 U/L ALT (GPT) 18 0-31 U/L Triglyceride 137 <150 mg/dL Desirable Triglyceride: less than 150 mg/dL Borderline High Triglyceride 150-199 mg/dL High Triglyceride: 200-499 mg/dL Very High Triglyceride: greater than or equal to 5OO mg/dL Cholesterol 226 H <200 mg/dL Desirable Cholesterol: less than 200 mg/dL Borderline High Cholesterol: 200-239 mg/dL High Cholesterol: greater than 239 mg/dL LDL Calculated 140 H <100 mg/dL Desirable LDL: less than 100 mg/dL Near Optimal/Above Optimal LDL: 110-129 mg/dL Borderline High LDL: 130-159 mg/dL High LDL: 160-189 mg/dL Very High LDL: greater than or equal to 190 mg/dL HDL 59 >40 mg/dL Desirable HDL: greater than 40 mg/dL Note: This HDL assay may give artificially low results in patients with liver disease. Vitamin D 25-OH 27.8 L >30 ng/mL Health Based Reference Values* < 20 ng/mL Deficient 20-30 ng/mL Insufficient > 30 ng/mL Sufficient Coding Level of Care Code Est Pt Prev Care 40-64y(31741) Diagnoses Increased frequency of urination R35.0 Influenza vaccination declined Z28.21 Morbid obesity E66.01 Impaired fasting glucose R73.01 CHEK2 gene mutation positive Z15.89 Dyslipidemia E78.5 Essential hypertension I10 Annual visit for general adult medical examination with abnormal findings Z00.01 Assessment & Plan Assessment & Plan (1) Increased frequency of urination: Code(s): R35.0 - Frequency of micturition Plan: Will check urinalysis with reflex culture and sensitivity (2) Influenza vaccination declined: Code(s): Z28.21 - Immunization not carried out because of patient refusal Category: Medical Plan: Patient does not want to get any flu shots (3) Morbid obesity: Code(s): E66.01 - Morbid (severe) obesity due to excess calories Category: Medical Plan: Reinforced importance of following healthy diet and getting regular exercise. (4) Impaired fasting glucose: Code(s): R73.01 - Impaired fasting glucose Category: Medical Plan: Your previous fasting blood sugars were elevated above 100 mg/dL. Impaired glucose metabolism increases the risk for developing diabetes mellitus type 2, as well as heart attack and stroke later on. Lifestyle changes that promotes weight loss, healthy eating habits, and regular exercise are important, and can prevent the progression to diabetes (5) CHEK2 gene mutation positive: Code(s): Z15.89 - Genetic susceptibility to other disease Category: Medical Plan: Reminded to get her yearly screening mammogram and is currently up-to-date with her screening colonoscopy, due again in 5 years (6) Dyslipidemia: Code(s): E78.5 - Hyperlipidemia, unspecified Category: Medical Plan: Fasting labs reviewed with patient. continued on rosuvastatin 5 mg every other day (7) Essential hypertension: Code(s): I10 - Essential (primary) hypertension Category: Medical Plan: Blood pressure at goal of less than 130/80. Continue with current medication. Reinforced importance of following a low sodium diet, getting regular exercise, and lowering stress levels. (8) Annual visit for general adult medical examination with abnormal findings: Code(s): Z00.01 - Encounter for general adult medical examination with abnormal findings Plan: Reviewed recent fasting lab results with patient. Continue with regular. dental visit every 6 months and regular eye exams, at least every 2 years. Take adequate calcium in diet and vitamin-D 3 at 2000 IU per cap once a day, in addition to weight-bearing exercises to help maintain good muscle tone and weight control. Instructed to do self-breast exam, and recommended to get yearly mammogram, sees her own OBGYN for routine Pap and pelvic exam.. Repeat colonoscopy due again in 5 years. Patient does not want to get flu vaccines, declined COVID boosters, reminded to get her shingles vaccination Orders: Orders UA CC w/rflx Micro + Cult 11/18/24 R35.0 - Frequency of micturition
--- OUTSIDE RECORDS SUMMARY | 2024-11-18 11:27 | XMS_ITS | Patient Health Record ---
[facility] Address [address] [place] [address] Care Team Providers Care Instructor Industrial Design Name Role Phone Janis PEDROZA, Gracie Ng Primary Care Provider Un available Davina Rhea Unavailable [phone] Allergies Allergen (clinical drug ingredient) Drug/Non Drug Allergy documented on EMR Reaction Allergy Type Onset Date Status Latex Latex Unknown Allergy Active Penicillin Unknown Drug Allergy Active Reason For Referral No Information Medications Medication SIG (Take, Route, Frequency, Duration) Notes Start Date End Date Status Rosuvastatin Calcium 5 MG 1 tablet Orall y Once a day; Duration: 30 day(s) Not-Taking Vitamin D 2000 Not-Taking [...] Status Risk Notes Problem Acquired hallux valgus (63612035) Hallux valgus (acquired), left foot (M20.12) Active confirmed Problem Acquired hallux valgus (52897342) Hallux valgus (acquired), right foot (M20.11) Active confirmed Problem Contracture of joint of right foot (disorder) ([id number]) Contracture , right foot (M24.574) Active confirmed Problem Acquired hammer toe of right foot (0580504041314916 ) Other hammer toe(s) (acquired), right foot (M20.41) Active confirmed Problem Acquired hammer toe of left foot (0195926488572314 ) Other hammer toe(s) (acquired), left foot (M20.42) Active confirmed Plan Of Treatment Pending Test Test Name Order Date X ray : Foot, left 3V 10/02/2022 X ray : Foot, right 3V 10/02/2022 Insurance Providers Payer Name Payer Address Payer Phone Subscriber Number Group Number Insured Name Patient Relationship to Insured Coverage Start Date Coverage End Date [facility] [address] [place] [address] [id number] Zeina Villegas Self - patient is the insured Medical (General) History Medical History History ICD Code Arthritis Back,Hip,and Knee pain CAD (Cholesterol) covid-19 Chicken pox Surgical History Surgery Date(Month/Year) bunion surgery hammer toe surgery
== END 2024-11-18 11:44 | disposition home or self-care (01) ==
LOC: HO.HMCC 10:38
PROVIDERS: PCP Internal Medicine; Visit Provider Internal Medicine
DX: Z00.01 Encounter for general adult medical examination with abnormal findings (principal); E66.01 Morbid (severe) obesity due to excess calories; R35.0 Frequency of micturition; Z68.42 Body mass index [BMI] 45.0-49.9, adult; Z28.21 Immunization not carried out because of patient refusal; R73.01 Impaired fasting glucose; Z15.89 Genetic susceptibility to other disease; E78.5 Hyperlipidemia, unspecified; I10 Essential (primary) hypertension

== ENCOUNTER 2024-11-18 10:37 | Outpatient (REF) | payer OTHER, SELFPAY ==
[2024-11-18 13:14] LABS: Appearance Urine Clear; Glucose Urine UA Negative (Negative); PH 5.0 (5.0-9.0); Specific Gravity - Urine 1.015 (1.005-1.025); UMIC TRIGGER UACC YES
[2024-11-18 13:18] LABS: UACC Culture Trigger YES
== END 2024-11-18 10:38 | disposition home or self-care (01) ==
LOC: HO.HMGCLDS 10:37
PROVIDERS: PCP Internal Medicine; Visit Provider Internal Medicine
DX: R35.0 Frequency of micturition (principal)
CPT/HCPCS: 81001; 87086